=== PATIENT | female | born 1950 | race Caucasian/White ===

== ENCOUNTER 2017-07-23 10:54 | Emergency (ER) | payer MEDICARE, MEDICAID ==
[~2017-07-23] VITALS: Ht 154.9 cm; Wt 46.8 kg
[~2017-07-23 10:54] MED LIST: ALBU8.5H2 IH; ALBU8.5H2 INHALATION; BECL8.7A6 IH; CLON0.5T PO; CYCL5TAB PO; DULO30CA PO; ERGO500050 PO; FLUT9.9S NS; HYDR-4003 PO; IBUP800T28 PO; LAMO200T2 PO; LEVO75TA4 PO; MULT-896 PO; OLAN5TAB PO; OMPR20CCR PO; POLY17PO2 PO; POTA10CA42 PO; RIZA10TA28 PO; TOPI200T7 PO; TRAZ-118 PO
[2017-07-23 11:00] VITALS: BP 128/73; PULSE 90; RESP 18; O2SAT 99
--- NOTE | 2017-07-23 11:34 | DRSVH ---
PROCEDURE: CT BRAIN WITHOUT CONTRAST ([id number]) INDICATIONS: altered mental status, confused TECHNIQUE: Noncontrast 4.5 mm thick angled axial sections acquired from the foramen magnum to the vertex, with c oronal reformats. COMPARISON: [facility], CT, BRAIN W/O CONTRAST, 10/31/2012, 16:06. FINDINGS: Image quality: Excellent. CSF spaces: Basal cisterns are patent. No extra-axial fluid collections. The ventricles are symmet linda in size and shape. Brain: No intracranial bleeds or masses. There is cerebral volume loss for age, with resultant vent ricular and sulcal prominence. There are periventricular and deep white matter chronic small vessel ischemic changes. There is intracranial internal carotid artery atherosclerosis. Skull and face: Calvarium and visualized facial bones appear intact, without suspicious lesions. Sinuses: Visualized sinuses and mastoids are clear. IMPRESSION: No acute intracranial abnormality Dictated by: Christoph Mitchell M.D. on 07/23/2017 at 11:30 Approved by: Christoph Mitchell M.D. on 07/23/2017 at 11:32
[2017-07-23 11:43] LABS: BASOPHILS % (AUTO) 0.1 % (0-3); EOSINOPHILS % (AUTO) 0.8 % (0-5); MONOCYTES % (AUTO) 8.3 % (4-12); Mean Corpuscular Hemoglobin 31.6 pg (27.0-35.0); Mean Corpuscular Volume 97.8 fL (81-100); NEUTROPHILS % (AUTO) 71.5 % (40-74); Platelet Count 320 bil/L (150-400)
--- NOTE | 2017-07-23 11:45 | ED.REPORT ---
HPI-General Illness Date of Service Jul 23, 2017 ED Provider: Michael Lilly MD This is a 66-year-old female with history of schizophrenia, dementia, COPD, hypertension who presents to the emergency department from [facility] for confusion. It is reported that she has been acting more unusual and is not at baseline for her dementia and schizophrenia. The patient states she is having a headache pointing to both temporals and is also feeling lightheaded. She has had these headaches in the past and these are not new. She states this started a couple days ago. She mentions of having a dry cough which she relates to her smoking. She denies any nausea, vomiting, chest pain, shortness of breath, abdominal pain, diarrhea, dysuria. She does note she has been very thirsty and drinking a lot of water and states she is having urinary frequency. After speaking with her primary caregiver at [facility], she mentions the patient has been more forgetful today. She noticed that she was weak and having difficulty walking. She does note that on Friday night she went out with her friends and stayed at their place and that when she returned on Friday (4 days ago) she was agitated and forgetful. It was mentioned that her counselor had also noticed this on 2 days prior which is a change from her baseline, though it's difficult to tell. Nursing Notes Stated Complaint: CONFUSED Chief Complaint: General Complaint Nursing Notes Reviewed: Yes Allergies: Coded Allergies: codeine (Verified Allergy, Severe, 09/12/15) quetiapine (Verified Allergy, Unknown, FEELS LIKE CRAWLING OUT OT SKIN, ) Scheduled Aspirin (Aspirin) 81 Mg Tablet 81 MG PO DAILY Beclomethasone Dipropionate (Qvar) 8.7 Gm Aer.w.adap 2 PUFFS IH BID Buspirone (Buspirone) 15 Mg Tablet 30 MG PO BID 8AM, 4PM Cholecalciferol (Vitamin D3) (Vitamin D3) 1,000 Unit Tab.chew 2,000 UNIT PO DAILY Clonazepam (Klonopin) 0.5 Mg Tablet 0.5 MG PO HS Clonazepam (Clonazepam) 0.5 Mg Tablet 0.25 MG PO BID 8AM, 3PM Duloxetine (Duloxetine) 60 Mg Capsule.dr 120 MG PO QAM Fluticasone Propionate (Flonase Allergy Relief) 50 Mcg/Actuation [place] Pos.susp 2 SPRAYS NS DAILY Hydrocodone-Acetaminophen 5-325 mg (Hydrocodone-Acetaminophen 5-325 mg) 1 Each Tablet 1 EACH PO TID 8am, 2pm, 8pm Ibuprofen (Ibuprofen) 800 Mg Tablet 800 MG PO TIDWM Lamotrigine (Lamotrigine) 150 Mg Tablet 450 MG PO HS Levothyroxine (Levothyroxine) 75 Mcg Tablet 75 MCG PO DAILY Multivitamin W-Minerals/Lutein (Centrum Silver Ultra Men's Tab) 1 Each Tablet 1 EACH PO DAILY Olanzapine (Olanzapine) 5 Mg Tablet 20 MG PO HS Omeprazole (Omeprazole) 20 Mg Capsule.dr 20 MG PO DAILY Potassium Chloride (Potassium Chloride) 10 Meq Capsule.er 20 MEQ PO DAILY TAKE WITH FOOD Ranitidine (Ranitidine) 150 Mg Capsule 150 MG PO BID Risedronate Sodium (Risedronate Sodium) 35 Mg Tablet 35 MG PO WEEKLY Topiramate (Topiramate) 200 Mg Tablet 200 MG PO BID Trazodone (Trazodone) 100 Mg Tablet 200 MG PO HS Ziprasidone (Ziprasidone) 60 Mg Capsule 180 MG PO DAILYWD diphenhydrAMINE HCl (Benadryl) 25 Mg Capsule 25 MG PO BID 8AM, 3PM diphenhydrAMINE HCl (Benadryl) 25 Mg Capsule 50 MG PO HS Scheduled PRN Albuterol HFA (Proair HFA) 8.5 Gm Hfa.aer.ad 2 PUFFS IH Q4-6H PRN PRN For Shortness of Breath Albuterol Neb Soln (Albuterol Neb Soln) 0.63 Mg/3 Ml Vial.neb 0.63 MG INHALATION Q4H PRN PRN For Shortness of Breath Calcium Carbonate/Mag Hydrox (Antacid Extra Strngth Tab Chew) 1 Each Tab.chew 1- 2 EACH PO QID PRN PRN For Indigestion Guaifenesin/Dextromethorphan (Robitussin Cough-Chest Dm Liq) 100 Mg-5 Mg/5 Ml Liquid 10-20 ML PO Q4H PRN PRN For Cough Ondansetron ODT (Ondansetron ODT) 4 Mg Tab.rapdis 4 MG PO QID PRN PRN For Nausea Polyethylene Glycol 3350 (Polyethylene Glycol 3350) 17 Gm Powd.pack 17 GM PO DAILY PRN PRN For Constipation General Time Seen by MD: 10:59 Chief Complaint Altered mental status Past Medical History This is a 66-year-old female with history of schizophrenia, dementia, COPD, hypertension who [facility]. It is reported that she has been acting more unusual and is not at baseline for her dementia and schizophrenia. The patient states she is having a headache pointing to both temporals and is also feeling lightheaded. She states this started a couple days ago. She mentions of having a dry cough which she relates to her smoking. She denies any nausea, vomiting, chest pain, shortness of breath, abdominal pain, diarrhea, dysuria. She does note she has been very thirsty and drinking a lot of water and states she is having urinary frequency. The patient herself is aware that she is in the emergency room at [facility] in [place]. After asking her the year, She originally said 1917 and after having her try again, she was able to reproduce 2016. She currently believes "Renny" is the president. I am unaware of what her baseline is. Past Medical History Chronic interstitial pulmonary fibrosis, stable with stable oxygenation. Hypothyroidism Chronic pain with narcotic dependence. Chronic anemia. Multiple psychiatric disorders Part dyskinesia Reports: COPD, GERD, Hypertension, Mental illness Past Surgical History Reports: Hysterectomy, Tonsillectomy Reports: Hip replacement Smoking History Former Smoker Social History Adult family home Alcohol Use: Denies alcohol use Drug Use: Denies drug use Ambulatory Status Independent Review of Systems Full Review of Systems Constitutional: Denies: Chills, Fever Ears / Nose / Throat: Denies: Sinus problem, Sore throat Respiratory: Reports: Non-productive cough, Denies: Shortness of breath Cardiovascular: Denies: Chest pain GI: Denies: Diarrhea Female: Reports: Urinary frequency, Denies: Dysuria, Incontinence Musculoskeletal: Denies: Back pain Skin: Denies Rash Neurologic: Reports: Headache (chronic), Lightheaded, Denies: Slurred speech Psychiatric: Reports: Change mental status Complete sys rev & neg: except as marked. Physical Exam Vital Signs Vital Signs Date Time Temp Pulse Resp B/P Pulse Ox O2 Delivery O2 Flow Rate FiO2 07/23/17 15:22 36.8 87 15 122/73 99 Room Air 07/23/17 12:51 87 15 122/73 99 Room Air 07/23/17 11:00 36.2 90 18 128/73 99 Room Air Initial VS: Reviewed General/Constitutional: Awake, Alert, No acute distress, Cooperative Head / Eyes: Atraumatic, Normocephalic, PERRL, EOMI, No nystagmus, No scleral icterus, Conjunctiva NL Respiratory / Chest: Breath sounds = bilat, No respiratory distress, No rhonchi , No wheezing Rales / Rhonchi: Positive: Rales bilateral bases Cardiovascular: Heart rate NL, Regular rhythm Heart Sounds / Murmur: Positive: Murmur location... (2nd R intercostal and apex ), Murmur present... (V/) Abdomen: Atraumatic, Soft, No guarding, No rebound, BS normoactive, No distention Back: No CVA tenderness Neurologic: Oriented X3, Speech NL, No motor deficits, No sensory deficits, CN II - XII intact, Cerebellar NL Patient is able to walk with cane without any difficulty. Finger to nose testing is normal. Psychiatric: Affect NL, Mood NL Patient is oriented to person place and time. She is aware of being in [facility] in [place]. Interpretation & Diagnostics Lab Results Interpretation Result Diagram: 07/23/17 1130 07/23/17 1130 Test 07/23/17 11:30 07/23/17 13:11 White Blood Count 7.8th/mm3 (3.8-10.1) Red Blood Count 3.61mil/mm3 (3.90-5.20) Hemoglobin 11.4g/dL (12.0-15.6) Hematocrit 35.3% (35.0-46.0) Mean Corpuscular Volume 97.8fL (81-100) Mean Corpuscular Hemoglobin 31.6pg (27.0-35.0) Mean Corpuscular Hemoglobin Concent 32.3% (32.0-37.0) Red Cell Distribution Width 13.7% (12.3-15.4) Platelet Count 320bil/L (150-400) Neutrophils (%) (Auto) 71.5% (40-74) Lymphocytes (%) (Auto) 19.0% (14-46) Monocytes (%) (Auto) 8.3% (4-12) Eosinophils (%) (Auto) 0.8% (0-5) Basophils (%) (Auto) 0.1% (0-3) Sodium Level 138mEq/L (134-144) Potassium Level 3.7mEq/L (3.5-5.2) Chloride Level 103mEq/L (97-108) Carbon Dioxide Level 21mmol/L (18-29) Blood Urea Nitrogen 14mg/dL (8-27) Creatinine 0.36mg/dL (0.57-1.00) Estimat Glomerular Filtration Rate 260mL/min (>59) Glucose Level 63mg/dL (60-99) Lactic Acid Level 0.8mmol/L (0.4-2.0) Calcium Level 9.2mg/dL (8.5-10.1) Magnesium Level 2.3mg/dL (1.6-2.6) Total Bilirubin 0.3mg/dL (0.0-1.2) Aspartate Amino Transf (AST/SGOT) 31U/L (0-50) Alanine Aminotransferase (ALT/SGPT) 14U/L (0-32) Alkaline Phosphatase 96U/L (25-165) Total Protein 6.6g/dL (6.4-8.4) Albumin 3.8g/dL (3.4-5.0) Salicylates Level < 3.0ug/mL (30-250) Acetaminophen Level < 15.0ug/mL Rx (10-25) Alcohols < 10mg/dL (0-10) Urine Color Yellow (YELLOW) Urine Appearance Hazy (CLEAR,HAZY) Urine pH 7.0 (5.0-8.0) Urine Specific [place] 1.015 (1.003-1.035) Urine Protein Tracemg/dL (NEG,TRACE) Urine Glucose (UA) Negativemg/dL (NEGATIVE) Urine Ketones Negativemg/dL (NEGATIVE) Urine Occult Blood Trace (NEGATIVE) Urine Nitrite Negative (NEGATIVE) Urine Bilirubin Negative (NEGATIVE) Urine Urobilinogen Normalmg/dL (NORMAL) Urine Leukocyte Esterase Negative (NEGATIVE) Urine RBC 3-10/hpf (0-2) Urine WBC 0-5/hpf (0-5) Urine Epithelial Cells Few/hpf (NONE-MOD) Urine Crystals Amorphous urates (NONE Urine Bacteria None/hpf (NONE-FEW) Urine Hyaline Casts None/lpf (NONE) Urine Granular Casts None seen (NONE SEEN) Urine Waxy Casts None seen (NONE SEEN) Urine Red Blood Cell Casts None seen (NONE SEEN) Urine White Blood Cell Casts None seen (NONE SEEN) Urine Mucus None seen (None Seen) Urine Trichomonas None seen (NONE SEEN) Urine Yeast None (NONE SEEN) Urinalysis Comment None Urine Culture Reflexed Not indicated Re-Eval/Medical Decision Med Decision/Clinical Course This is a 66-year-old male with history of dementia, schizophrenia, COPD, hypothyroidism who presents to the emergency department for altered mental status. Apparently patient has been more forgetful and had an episode of being weak, pale, and unable to walk. The patient herself notes a headache that has been present previously. Her physical exam findings are quite unremarkable. On neurologic exam, cranial nerves II-XII are intact with normal finger to nose testing. She has ambulated here and has been pleasant and conversant. Her chest x-ray does show some possible mild pulmonary edema, though she is not symptomatic from this. Her CT head showed no acute intracranial abnormalities. Urine tox screen is positive for methamphetamine, benzodiazepine, opiates, PCP. However, she is on a lot of psychiatric medications which could cause some false positives. There is no evidence of a urinary tract infection on the urinalysis. Her CBC and CMP are quite unremarkable except for a mild anemia which has been observed in the past and is stable. Had a discussion with [facility] facility who was comfortable with accepting the patient back given her reassuring workup thus far in the emergency department. She is seemingly at baseline at this time. The nursing facility did not feel it was necessary to admit the patient for her symptoms. Patient is also requesting to leave. There does not seem to be any acute process going on at this time and patient is stable to go home as the patient seems to be back at baseline. Plan to discharge with very careful return precautions, PCP follow-up in the next 1- 2 days. Patient agreeable to the plan as stated, no further questions. 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 There is no evidence of any acute intracranial process going on per head CT scan. There is no evidence of infection based off blood results and urinalysis. If you start to develop fevers, increased confusion, sudden onset weakness, return to the ED. Referrals: Ainsley Hinson MD (PCP) (Family) Attending Statement I saw and evaluated the patient in conjunction with the resident. I agree with the plan and findings as documented above. Michael Lilly MD Jul 23, 2017 11:45 Abdifatah Raza DO Jul 23, 2017 12:36
--- NOTE | 2017-07-23 11:56 | DRSVH ---
PROCEDURE: X-RAY CHEST ONE VIEW, PORTABLE ([id number]) INDICATIONS: confused TECHNIQUE: One view of the chest was acquired. COMPARISON: [facility], CR, XR CHEST 2VW, 11/20/2015, 9:15. [facility], CR , CHEST 2VW, 04/01/2015, 12:39. FINDINGS: Surgical changes and devices: None. Lungs and pleura: No pleural effusions or pneumothorax. Lungs are again seen to be fibrotic, most p rominent at the lung bases, and there is chronic elevation of the left hemidiaphragm. The overall elgin ng volumes are reduced bilaterally.. Mediastinum: Mediastinal contours appear normal. Heart size is normal. Bones and chest wall: No suspicious bony lesions. Overlying soft tissues appear unremarkable. IMPRESSION: Pulmonary fibrotic change, possible superimposed mild pulmonary edema. Chronic elevation of the left hemidiaphragm, and bilaterally the lung volumes are smaller than on the comparison studi es from 2014. This can indicate progression of restrictive lung disease. Dictated by: Henry Diaz M.D. on 07/23/2017 at 11:54 Approved by: Henry Diaz M.D. on 07/23/2017 at 11:55
[2017-07-23 12:14] LABS: Magnesium 2.3 mg/dL (1.6-2.6)
[2017-07-23 12:51] VITALS: BP 122/73; PULSE 87; RESP 15; O2SAT 99
[2017-07-23] MEDS ORDERED: ONDA4TAB12 PO (13:48)
[2017-07-23] MEDS ORDERED: ALBU0.63 INHALATION (13:48)
[2017-07-23] MEDS ORDERED: CALC-853 PO (13:48)
[2017-07-23] MEDS ORDERED: GUAI237L83 PO (13:51)
[2017-07-23] MEDS ORDERED: ASPI-973 PO (13:51)
[2017-07-23] MEDS ORDERED: BUSP15TA3 PO (13:58)
[2017-07-23] MEDS ORDERED: DULO60CA61 PO (13:58)
[2017-07-23] MEDS ORDERED: DIPH25CA6 PO ×2 (13:58)
[2017-07-23] MEDS ORDERED: LAMO150T2 PO (14:01)
[2017-07-23 14:04] LABS: APPEARANCE,URINE HAZY (CLEAR,HAZY); COLOR,URINE YELLOW (YELLOW); OCCULT BLOOD,URINE TRACE (NEGATIVE); UROBILINOGEN,URINE NORMAL (NORMAL)
[2017-07-23] MEDS ORDERED: RISE35TA13 PO (14:06)
[2017-07-23] MEDS ORDERED: CHOL10008 PO (14:06)
[2017-07-23] MEDS ORDERED: ZIPR60CA18 PO (14:06)
[2017-07-23] MEDS ORDERED: OMEP20CA11 PO (14:06)
[2017-07-23] MEDS ORDERED: RANI150C4 PO (14:06)
[2017-07-23] MEDS ORDERED: KLO5T PO (14:06)
[2017-07-23 15:22] VITALS: BP 122/73; PULSE 87; RESP 15; O2SAT 99
== END 2017-07-23 15:23 | disposition home or self-care (01) ==
LOC: SED 10:54 → EDBD 10:54 → EDUNIT# 10:54 → SED 15:23
DX: R41.82 Altered mental status, unspecified (principal); R51 Headache; R35.0 Frequency of micturition; E03.9 Hypothyroidism, unspecified; K21.9 Gastro-esophageal reflux disease without esophagitis; J44.9 Chronic obstructive pulmonary disease, unspecified; I10 Essential (primary) hypertension; Z87.891 Personal history of nicotine dependence; Z79.82 Long term (current) use of aspirin; Z79.51 Long term (current) use of inhaled steroids; Z88.5 Allergy status to narcotic agent
CPT/HCPCS: 36415; 70450; 71010; 80053; 81000; 82948; 83605; 83735; 85025; 93005; 99285; G0480

== ENCOUNTER 2017-08-05 18:17 | Inpatient (IN) | payer MEDICARE, MEDICAID ==
[~2017-08-05] VITALS: Ht 157.5 cm; Wt 36.2 kg
[~2017-08-05 18:17] MED LIST changes: +ALBU0.63 INHALATION; -ALBU8.5H2 INHALATION; +ASPI-973 PO; +BUSP15TA3 PO; +CALC-853 PO; +CHOL10008 PO; -CYCL5TAB PO; +DIPH25CA6 PO; -DULO30CA PO; +DULO60CA61 PO; -ERGO500050 PO; +GUAI237L83 PO; +KLO5T PO; +LAMO150T2 PO; -LAMO200T2 PO; +OMEP20CA11 PO; -OMPR20CCR PO; +ONDA4TAB12 PO; +RANI150C4 PO; +RISE35TA13 PO; -RIZA10TA28 PO; +ZIPR60CA18 PO
[2017-08-05 18:29] VITALS: BP 145/63; PULSE 97; RESP 24; O2SAT 72
--- NOTE | 2017-08-05 18:44 | ED.REPORT ---
HPI-Dyspnea / Wheezing Date of Service Aug 05, 2017 ED Provider: Salazar Chamberlain MD History of Present Illness: KATHLEEN Pt is a 67 year old female with a hx of multiple psychiatric disorders, COPD, GERD, HTN, pulmonary fibrosis, hypothyroid, presenting to the ED via EMS complaining of SOB and a non-productive cough onset about 5-6 days ago. She also reports chest pain for the past week as well as speech changes, but is unable to state when this began or what her baseline is. Denies fever, chills, diaphoresis, nausea, or vomiting. She denies using a home nebulizer today, and is on chronic O2 at home. HPI limited due to patient condition. Nursing Notes Stated Complaint: SHORTNESS OF BREATH Chief Complaint: Respiratory Complaints Nursing Notes Reviewed: Yes (P2P-Next not reconciled) Allergies: Coded Allergies: codeine (Verified Allergy, Severe, 08/05/17) quetiapine (Verified Allergy, Unknown, FEELS LIKE CRAWLING OUT OT SKIN, 11/09) Scheduled Aspirin (Aspirin) 81 Mg Tablet 81 MG PO DAILY Beclomethasone Dipropionate (Qvar) 8.7 Gm Aer.w.adap 2 PUFFS IH BID Buspirone (Buspirone) 15 Mg Tablet 30 MG PO BID at 0800 and 1600 Cholecalciferol (Vitamin D3) (Vitamin D3) 1,000 Unit Tab.chew 2,000 UNIT PO DAILY Clonazepam (Klonopin) 0.5 Mg Tablet 0.5 MG PO HS Clonazepam (Clonazepam) 0.5 Mg Tablet 0.25 MG PO BID 8AM, 3PM Duloxetine (Duloxetine) 60 Mg Capsule.dr 120 MG PO QAM Fluticasone Propionate (Flonase Allergy Relief) 50 Mcg/Actuation [place].susp 2 SPRAYS NS DAILY Hydrocodone-Acetaminophen 5-325 mg (Hydrocodone-Acetaminophen 5-325 mg) 1 Each Tablet 1 EACH PO TID 8am, 2pm, 8pm Ibuprofen (Ibuprofen) 800 Mg Tablet 800 MG PO TIDWM Lamotrigine (Lamotrigine) 150 Mg Tablet 450 MG PO HS Levothyroxine (Levothyroxine) 75 Mcg Tablet 75 MCG PO DAILY Multivitamin W-Minerals/Lutein (Centrum Silver Ultra Men's Tab) 1 Each Tablet 1 EACH PO DAILY Olanzapine (Olanzapine) 5 Mg Tablet 20 MG PO HS Omeprazole (Omeprazole) 20 Mg Capsule.dr 20 MG PO DAILY Potassium Chloride (Potassium Chloride) 10 Meq Capsule.er 20 MEQ PO DAILY TAKE WITH FOOD Ranitidine (Ranitidine) 150 Mg Capsule 150 MG PO BID Risedronate Sodium (Risedronate Sodium) 35 Mg Tablet 35 MG PO WEEKLY Topiramate (Topiramate) 200 Mg Tablet 200 MG PO BID Trazodone (Trazodone) 100 Mg Tablet 200 MG PO HS Ziprasidone (Ziprasidone) 60 Mg Capsule 180 MG PO DAILYWD diphenhydrAMINE HCl (Benadryl) 25 Mg Capsule 25 MG PO QAM diphenhydrAMINE HCl (Benadryl) 25 Mg Capsule 50 MG PO BID at 1500 and 2100 Scheduled PRN Albuterol HFA (Proair HFA) 8.5 Gm Hfa.aer.ad 2 PUFFS IH Q4-6H PRN PRN For Shortness of Breath Albuterol Neb Soln (Albuterol Neb Soln) 0.63 Mg/3 Ml Vial.neb 0.63 MG INHALATION QID PRN PRN For Shortness of Breath Calcium Carbonate/Mag Hydrox (Antacid Chewable Tablet) 1 Each Tab.chew 1-2 EACH PO q6 hours PRN PRN For Dyspepsia or Heartburn Guaifenesin/Dextromethorphan (Robitussin Cough-Chest Dm Liq) 100 Mg-5 Mg/5 Ml Liquid 10-20 ML PO Q4H PRN PRN For Cough Ondansetron ODT (Ondansetron ODT) 4 Mg Tab.rapdis 4 MG PO QID PRN PRN For Nausea Polyethylene Glycol 3350 (Polyethylene Glycol 3350) 17 Gm Powd.pack 17 GM PO DAILY PRN PRN For Constipation General Time Seen by MD: 18:40 Chief Complaint Shortness of breath Hx Obtained From: Patient Arrived By: Ambulance Sudden in Onset?: No Onset Occurred: 6 days ago Symptom Duration: Since onset Location: : Chest left: Chest right Quality: Painful Severity: Current: Mild Severity: Maximum: Moderate Recent Healthcare: No recent doctor visit, No recent hospitalization Similar Sx Previous: No Past Medical History Past Medical History Chronic interstitial pulmonary fibrosis, stable with stable oxygenation. Hypothyroidism Chronic pain with narcotic dependence. Chronic anemia. Multiple psychiatric disorders Part dyskinesia Reports: COPD, GERD, Hypertension, Mental illness Past Surgical History Reports: Hysterectomy, Tonsillectomy Reports: Hip replacement Smoking History Former Smoker Social History Adult family home Alcohol Use: Denies alcohol use Drug Use: Denies drug use Ambulatory Status Independent Review of Systems Unable to Obtain ROS Patient condition Physical Exam Initial Vital Signs Vital Signs (First) Date Time Temp Pulse Resp B/P Pulse Ox O2 Delivery O2 Flow Rate FiO2 08/05/17 18:29 36.6 97 24 145/63 72 Room Air 08/05/17 19:04 4 Initial VS: Reviewed, Vital signs abnormal Head / Eyes: Atraumatic, Normocephalic, PERRL ENT: Mucous membranes moist, Conjunctiva normal, No scleral icterus Abdomen / GI: Soft, Non-tender, No guarding, No rebound, No distention Extremities: Vascular intact, Neuro intact, No swelling, No tenderness Skin: Warm, Dry, No cyanosis General/Constitutional: Awake, Alert Thin, cachectic. Poor historian. Respiratory / Chest: Atraumatic Resp Distress / Stridor: Positive: Resp distress moderate Scattered wheezes. Hacking, uncomfortable appearing cough. Cardiovascular: Heart rate NL, Regular rhythm, Heart sounds NL Neurologic: Oriented X3 Moving all 4 extremities. Pt is very focused and gives same answer to several different questions. Speech thick and difficult to understand, and cannot get straight answer if this is her baseline. Psychiatric: Affect NL Limited insight. Mild confusion but unclear what baseline is. Interpretation & Diagnostics CT HEAD: IMPRESSION: 1. No acute intracranial findings. 2. Findings likely associated with chronic microvascular ischemia. Dictated by: Sherry Pena M.D. on 08/05/2017 at 20:07 Lab Results Interpretation Result Diagram: 08/05/17 1850 08/05/17 185 Test 08/05/17 18:50 08/05/17 19:23 White Blood Count 10.3th/mm3 (3.8-10.1) Red Blood Count 3.62mil/mm3 (3.90-5.20) Hemoglobin 11.2g/dL (12.0-15.6) Hematocrit 34.4% (35.0-46.0) Mean Corpuscular Volume 95.0fL (81-100) Mean Corpuscular Hemoglobin 30.9pg (27.0-35.0) Mean Corpuscular Hemoglobin Concent 32.6% (32.0-37.0) Red Cell Distribution Width 13.3% (12.3-15.4) Platelet Count 554bil/L (150-400) Neutrophils (%) (Auto) 83.2% (40-74) Lymphocytes (%) (Auto) 9.1% (14-46) Monocytes (%) (Auto) 6.8% (4-12) Eosinophils (%) (Auto) 0.5% (0-5) Basophils (%) (Auto) 0.2% (0-3) Sodium Level 135mEq/L (134-144) Potassium Level 3.3mEq/L (3.5-5.2) Chloride Level 98mEq/L (97-108) Carbon Dioxide Level 18mmol/L (18-29) Blood Urea Nitrogen 15mg/dL (8-27) Creatinine 0.35mg/dL (0.57-1.00) Estimat Glomerular Filtration Rate 268mL/min (>59) Glucose Level 189mg/dL (60-99) Calcium Level 8.6mg/dL (8.5-10.1) Total Bilirubin 0.3mg/dL (0.0-1.2) Aspartate Amino Transf (AST/SGOT) 40U/L (0-50) Alanine Aminotransferase (ALT/SGPT) 17U/L (0-32) Alkaline Phosphatase 124U/L (25-165) Troponin T < 0.010ug/L (0.0-0.011) Pro-B-Type Natriuretic Peptide 322.0pg/mL (0-301) Total Protein 6.6g/dL (6.4-8.4) Albumin 3.4g/dL (3.4-5.0) Procalcitonin 0.08ng/mL (0.00-0.08) Lactic Acid Level 1.2mmol/L (0.4-2.0) Salicylates Level < 3.0ug/mL (30-250) Acetaminophen Level < 15.0ug/mL Rx (10-25) Alcohols < 10mg/dL (0-10) Lab Results Interpretation: CBC normal CMP trace hypokalemia, likely secondary to aggressive albuterol use Lactic acid normal Troponin negative ProBNP nonspecifically elevated Blood cultures pending ECG Interpretation ECG Interpretation: NSR @91, severe LVH w/progressive repol (ST depression) lateral leads compare w/previous - possibly due to progressive LVH/Cor pulmonale or patient's hypxoxia today Interpreted by: ED physician X-Ray Chest Interpretation Chest Xray Interpretation: IMPRESSION: 1. Diffuse right pulmonary opacities and left basilar radiopacity suspicious for aspiration/infection. These findings have increased in extent when compared with the prior study dated 07/23/17. 2. Marked gaseous distention of the bowel suspicious for distal obstruction or ileus. Dictated by: Sherry Pena M.D. on 08/05/2017 at 19:06 View: Portable, 1 view Interpretation / Wet Read by: Interpret - Radiologist Re-Eval/Medical Decision Med Decision/Clinical Course This is a 67-year-old female 1 stating COPD pulmonary fibrosis presents with slowly worsening shortness breath and increasing cough. The poor historian, and her speech is abnormal-and initially had difficulty starting out this is an acute speech change or not. Additionally the patient is a terrible historian, and it is difficult to understand her baseline mental status-records clearly do indicate some mental health history and cognitive challenges. A friend came by , and says that speech turned out to be not an acute change, although distant slowly worsening over recent months, and her mental status be at her baseline. Records suggest the patient's on O2 chronically, but she lives in adult family home and it turns out she is not normally on O2-she has significant hypoxia today requiring supplemental O2. She has significant bronchospasm, no marked cough, but is not febrile. Chest x-ray reveals progressive pulmonary fibrosis, suspicious for developing pneumonia. Clinically this also fits. Patient also has chronic left hemidiaphragm elevation and gastric hernia evident on chest film. However this does not appear appreciably changed. There is a moderate amount of gas, the patient's had no vomiting, normal stool output, no signs of deeapk obstruction. The friend does state his been decreased appetite some anorexia and recent weeks however. Patient received multiple nebulizers of albuterol, Atrovent, Solu-Medrol, magnesium and is started on ceftriaxone and azithromycin for pneumonia. Given initially it was difficult to determine what her baseline mental status and her try to sort out she was altered from hypercapnia blood gas was obtained , but did not reveal signs of CO2 retention or respiratory failure. The patient remains significantly hypoxic, bronchospastic, does require admission for continued management. The case discussed the hospitalist Source of Hx: Old records Re-Evaluation/Progress : Time of Eval: 20:00 Patient Status: Condition improved Re-Evaluation/Progress Note: Informed pt of radiolgy and lab results and plan for admission. Pt understands and agrees. Consultation : Referral / Consult Name: Abdifatah Edmondson MD Consulted With: Hospitalist Call Returned at: 20:09 Major General: Will see patient, Agrees with plan, Accepts admit Counseled Regarding: Diagnosis, Lab results, Need for admission Discharge & Departure Impression: Primary Impression: COPD exacerbation Additional Impressions: Pneumonia Pneumonia type: due to unspecified organism Laterality: unspecified laterality Lung location: unspecified part of lung Qualified Code: J18.9 - Pneumonia, unspecified organism Hypoxia Disposition: ADMITTED TO HOSPITAL Discharge Condition All VS Reviewed: Yes Condition: Improved Referrals: Ainsley Hinson MD (PCP) [place] Attestation Portions of this note were transcribed by Regine Zuniga. I, Dr. Chamberlain personally performed the history, physical exam and medical decision-making; I reviewed and confirmed the accuracy of the information in the transcribed note. Signed by: Darius Lewis, 08/05/2017. copies to: Ainsley Hinson MD, Matthew F MD Aug 05, 2017 18:44 REGINE ZUNIGA Aug 05, 2017 19:04
[2017-08-05] MEDS ORDERED: Albuterol 2.5 mg/3 mL Inhalation Solution NEB ONE ×3 (18:45→20:15)
[2017-08-05] MEDS ORDERED: Ipratropium 0.02% 0.5 mg/2.5 mL Inhalation Solution NEB ONE ×2 (18:45→18:50)
[2017-08-05] MEDS ORDERED: MethylprednisoLONE Sodium Succinate 62.5 mg/mL 2 mL Inj IVPUSH ONE (18:50)
[2017-08-05] MEDS ORDERED: Magnesium Sulf 2 Gm/50mL Water 2 GM in IV Premix 1 EACH IV ONE (18:50)
[2017-08-05 19:04] VITALS: PULSE 94; RESP 23; O2SAT 94
[2017-08-05 19:04] LABS: BASOPHILS % (AUTO) 0.2 % (0-3); EOSINOPHILS % (AUTO) 0.5 % (0-5); MONOCYTES % (AUTO) 6.8 % (4-12); Mean Corpuscular Hemoglobin 30.9 pg (27.0-35.0); NEUTROPHILS % (AUTO) 83.2 % (40-74); Platelet Count 554 bil/L (150-400)
--- NOTE | 2017-08-05 19:14 | DRSVH ---
PROCEDURE: X-RAY CHEST ONE VIEW, PORTABLE ([id number]) INDICATIONS: shortness of breath TECHNIQUE: One view of the chest was acquired. COMPARISON: [facility], CR, XR CHEST 1VW (PORTABLE), 07/23/2017, 11:33. FINDINGS: Surgical changes and devices: None. Lungs and pleura: Diffuse pulmonary opacities are present throughout the right lung and the left lung base. The extent of infiltration is increased when compared with the prior study dated 07/23/17. No p neumothorax. Mediastinum: Mediastinum is poorly characterized given the extent of pulmonary disease. There is ezequiel ed gaseous distention of the bowel with elevation of the left hemidiaphragm. Bones and chest wall: No suspicious bony lesions. Overlying soft tissues appear unremarkable. IMPRESSION: 1. Diffuse right pulmonary opacities and left basilar radiopacity suspicious for aspiration/infection . These findings have increased in extent when compared with the prior study dated 07/23/17. 2. Marked gaseous distention of the bowel suspicious for distal obstruction or ileus. Dictated by: Sherry Pena M.D. on 08/05/2017 at 19:06 Approved by: Sherry Pena M.D. on 08/05/2017 at 19:13
[2017-08-05 19:26] LABS: TROPONIN T < 0.010 ug/L (0.0-0.011)
--- NOTE | 2017-08-05 19:26 | ABG ---
DateTimeAnalyzed 19:18:00 -_ pH ____7.351 - 7.350 7.450 pCO2 ___41.1__ -mmHg 35.0 45.0 pO2 ___56.4__ -mmHg 69.0 116 HCO3- ___22.2__ -mmol/L 22.0 26.0 ABE ___-2.7__ -mmol/L -2.0 2.0 tHb ___10.7__ -g/dL 12.0 18.0 O2Hb ___85.9__ -% COHb ____1.1__ -% 0.0 1.5 MetHb ____1.0__ -% 0.4 1.5 sO2 ___87.7__ -% FIO2 ___28.0__ -% Drawn By MM - Date/Time Notified____ 19:25:00 -_ Spontaneous_RR ___22.0__ -b/min Liter_Flow ____2.0__ -L/min Oxygen Device 1 __CANNULA - Notified Whom DR INO, THOMSON -_ B 756 -mmHg tO2 ___13.0__ -Vol% Josh test _Positive -
[2017-08-05] MEDS ORDERED: Azithromycin Inj 500 MG in Dextrose 5% w/Vial Mate 250 ML IV ONE (19:35)
[2017-08-05] MEDS ORDERED: cefTRIAXone Inj 2,000 MG in Dextrose 5% Minibag Plus 50 ML IV ONE (19:35)
--- NOTE | 2017-08-05 20:10 | DRSVH ---
PROCEDURE: CT BRAIN WITHOUT CONTRAST ([id number]) INDICATIONS: Altered speech TECHNIQUE: Noncontrast 4.5 mm thick angled axial sections acquired from the foramen magnum to the vertex, with c oronal reformats. COMPARISON: [facility], CT, CT BRAIN WO CON, 07/23/2017, 11:15. FINDINGS: Image quality: Excellent. CSF spaces: Basal cisterns are patent. No extra-axial fluid collections. The ventricles are symmet linda in size and shape. Brain: No intracranial bleeds or masses. There is cerebral volume loss for age, with resultant vent ricular and sulcal prominence. There are periventricular and deep white matter chronic small vessel ischemic changes. There is intracranial internal carotid artery atherosclerosis. Skull and face: Calvarium and visualized facial bones appear intact, without suspicious lesions. Sinuses: Visualized sinuses and mastoids are clear. IMPRESSION: 1. No acute intracranial findings. 2. Findings likely associated with chronic microvascular ischemia. Dictated by: Sherry Pena M.D. on 08/05/2017 at 20:07 Approved by: Sherry Pena M.D. on 08/05/2017 at 20:08
[2017-08-05] MEDS ORDERED: CALC-846 PO (20:32)
--- NOTE | 2017-08-05 20:42 | PCM.HPMED ---
Subjective Date of Service Aug 05, 2017 Primary Provider: Admitting Physician: Primary Care Physician: Ainsley Hinson MD Attending Physician: Chief Complaint: Shortness of breath History of Present Illness: 67-year-old female with a history of multiple psychiatric disorders, hypertension, hypothyroidism, pulmonary fibrosis secondary to aspiration during suicide attempt 11 years ago, and COPD who [facility] complaining of progressive shortness of breath over the last 7-10 days with intermittently productive cough. Patient states that 10 days ago she quit cigarettes in a few days afterwards she developed more marketed shortness of breath, chest pressure with reported radiation to the neck, and decreased exercise tolerance. She denies chest pain, fever, chills, nausea, vomiting, change in bowel or bladder habits. She is not on oxygen at the prison. Her friend is with her and reports that the patient has had a steady decline in mentation over the last few months. She is receiving care through [facility] and her friend states that there is a post needs a psychiatrist to review her medications to see if this is causing her decrease mental status. Last time patient was seen by pulmonology was in 2011, and there are no PFTs found in [facility]. In the Emergency department the patient was found to be severely hypoxic with sats in the 70s. Chest x-ray showed consolidations in the right lobe along with what appears to be large amounts of interstitial disease. Patient also had dilated loops of bowel and stomach which were increased from her last x- ray. She was given 125 mg of Solu-Medrol, started on ceftriaxone and azithromycin, and given magnesium, albuterol and ipratropium. Review of Systems: Complete review of systems performed; pertinent positives and negatives per history of present illness, all other systems reviewed and are negative Allergies Coded Allergies: codeine (Verified Allergy, Severe, 08/05/17) quetiapine (Verified Allergy, Unknown, FEELS LIKE CRAWLING OUT OT SKIN, 11/09) Home Medications Aspirin (Aspirin) 81 Mg Tablet 81 MG PO DAILY Beclomethasone Dipropionate (Qvar) 8.7 Gm Aer.w.adap 2 PUFFS IH BID Buspirone (Buspirone) 15 Mg Tablet 30 MG PO BID 8AM, 4PM Cholecalciferol (Vitamin D3) (Vitamin D3) 1,000 Unit Tab.chew 2,000 UNIT PO DAILY Clonazepam (Klonopin) 0.5 Mg Tablet 0.5 MG PO HS Clonazepam (Clonazepam) 0.5 Mg Tablet 0.25 MG PO BID 8AM, 3PM Duloxetine (Duloxetine) 60 Mg Capsule.dr 120 MG PO QAM Fluticasone Propionate (Flonase Allergy Relief) 50 Mcg/Actuation [place].susp 2 SPRAYS NS DAILY Hydrocodone-Acetaminophen 5-325 mg (Hydrocodone-Acetaminophen 5-325 mg) 1 Each Tablet 1 EACH PO TID 8am, 2pm, 8pm Ibuprofen (Ibuprofen) 800 Mg Tablet 800 MG PO TIDWM Lamotrigine (Lamotrigine) 150 Mg Tablet 450 MG PO HS Levothyroxine (Levothyroxine) 75 Mcg Tablet 75 MCG PO DAILY Multivitamin W-Minerals/Lutein (Centrum Silver Ultra Men's Tab) 1 Each Tablet 1 EACH PO DAILY Olanzapine (Olanzapine) 5 Mg Tablet 20 MG PO HS Omeprazole (Omeprazole) 20 Mg Capsule.dr 20 MG PO DAILY Potassium Chloride (Potassium Chloride) 10 Meq Capsule.er 20 MEQ PO DAILY TAKE WITH FOOD Ranitidine (Ranitidine) 150 Mg Capsule 150 MG PO BID Risedronate Sodium (Risedronate Sodium) 35 Mg Tablet 35 MG PO WEEKLY Topiramate (Topiramate) 200 Mg Tablet 200 MG PO BID Trazodone (Trazodone) 100 Mg Tablet 200 MG PO HS Ziprasidone (Ziprasidone) 60 Mg Capsule 180 MG PO DAILYWD diphenhydrAMINE HCl (Benadryl) 25 Mg Capsule 25 MG PO BID 8AM, 3PM diphenhydrAMINE HCl (Benadryl) 25 Mg Capsule 50 MG PO HS Albuterol HFA (Proair HFA) 8.5 Gm Hfa.aer.ad 2 PUFFS IH Q4-6H PRN PRN For Shortness of Breath Albuterol Neb Soln (Albuterol Neb Soln) 0.63 Mg/3 Ml Vial.neb 0.63 MG INHALATION Q4H PRN PRN For Shortness of Breath Calcium Carbonate/Mag Hydrox (Antacid Extra Strngth Tab Chew) 1 Each Tab.chew 1- 2 EACH PO QID PRN PRN For Indigestion Guaifenesin/Dextromethorphan (Robitussin Cough-Chest Dm Liq) 100 Mg-5 Mg/5 Ml Liquid 10-20 ML PO Q4H PRN PRN For Cough Ondansetron ODT (Ondansetron ODT) 4 Mg Tab.rapdis 4 MG PO QID PRN PRN For Nausea Polyethylene Glycol 3350 (Polyethylene Glycol 3350) 17 Gm Powd.pack 17 GM PO DAILY PRN PRN For Constipation PMH Chronic interstitial pulmonary fibrosis, stable with stable oxygenation. Hypothyroidism Chronic pain with narcotic dependence. Chronic anemia. Multiple psychiatric disorders Part dyskinesia COPD GERD Hypertension Previous suicide attempt 11 years ago Surgical History Reports: Hysterectomy, Tonsillectomy Reports: Hip replacement Family History Father of heart disease Social History Hx Alcohol Use: No Hx Substance Use: No Hx Tobacco Use: Yes (27 yrs) Smoking Status: Current Every Day Smoker Exam Vital Signs Vital Sign - Last Date Time Temp Pulse Resp B/P Pulse Ox O2 Delivery O2 Flow Rate FiO2 08/05/17 19:04 94 23 94 Nasal Cannula 4 08/05/17 18:29 36.6 145/63 Exam General: Anxious female although than stated age HEENT: PERRLA, EOMI, nonicteric, membranes moist Lymph: No lymphadenopathy Cardio: Regular rate and rhythm 3-4/6 murmur heard best at left lower sternal border Respiratory: Bronchitis, coarse breath sounds, no wheezes Abdomen: Soft, positive bowel sounds, nontender, nondistended Extremities: No edema, sensation intact Psych: Anxious and somewhat aloof Neuro: CN II through XII grossly intact, sensation intact throughout Skin: No rash Lab and Diagnostics Result Diagram: 08/05/17184908/05/171849 X-Rays, CTs and MRIs Chest x-ray 1. Diffuse right pulmonary opacities and left basilar radiopacity suspicious for aspiration/infection. These findings have increased in extent when compared with the prior study dated 07/23/17 2. Marked gaseous distention of the bowel suspicious for distal obstruction or ileus. Dictated by: Sherry Pena M.D. on 08/05/2017 at 19:06 Assessment & Plan 67-year-old female with a past psychiatric history and mental decline, hypertension, pulmonary fibrosis, and COPD who presented to the emergency department due to 7-10 days of increased shortness of breath and chest pressure. Acute Hypoxia respiratory failure; present on admission; ongoing -Patient found to be severely hypoxic with sats in the 70s -Placed on oxygen -ABG shows normal pH with hypoxia with PO2 of 56.4 and normal PCO2 and bicarbonate. Acute COPD exacerbation with possible pneumonia; present on admission; ongoing -Patient not on home oxygen and presents with a saturation of the 70s -Chest x-ray shows diffuse fibrosis as well as possible consolidation in the right lower lobe -DuoNeb every 4 while awake -Methylprednisolone 40 mg IV daily; received 25 mg needed -Azithromycin (5day course) and continue ceftriaxone; her daughter home has 4 tenets and no nursing so will not cover for age -procalcitonin normal; repeat in am -Sputum culture -Respiratory PCR -Home medications include pro-air, nebulized albuterol, Qvar -Continue flonase Subacute and progressive encephalopathy in a setting of psychiatric disorder; present on admission; ongoing -Reported mental decline over the last 3 months; following with [facility] -Friend is concerned she is to many psychiatric medications -CT of the head was normal -Order TSH -Continue home medications for now -Lamotrigine, olanzapine, duloxetine, clonazepam, ziprasidone -Consider psychiatry consult for recommendations on medications Chronic pain with narcotic dependence; stable -Continue home hydrocodone Hypothyroidism-continue home levothyroxine 75 g. Check TSH Hypertension-no home meds listed in currently normotensive Insomnia-uses clonazepam at home; will treat as needed/requested Headaches-continue home topiramate GERD-famotidine 20 mg IV Osteoporosis-will not continue risedronate on admit; consider adding if extended LOS Disposition: Patient is being admitted to inpatient status with expected length of stay greater than two midnights due to to severity of presentation, duration of treatment, and risks of adverse events disposition Pain Evaluation: Adequate Pain Control GI Prophylaxis: H2 elsie VTE Prophylaxis: Sub-Q Heparin (Unfractionated) VTE Mechanical Devices: Intermittant Pneumatic CD Resuscitation Status: DNR/DNI:Do Not Resuscitate/Intubate Attending Statement The patient was seen and examined together with Dr. Traore on 08/05 and I agree with the history, exam and plan as outlined in the note above. Anant Traore DO Aug 05, 2017 20:42 Abdifatah Edmondson MD Aug 06, 2017 07:02
[2017-08-05] MEDS ORDERED: Polyethylene Glycol (PEG) 17 Gm Powder PO PRN (20:45)
[2017-08-05] MEDS ORDERED: Alum-Mag Hydrox-Simeth 30 mL Suspension PO PRN (20:45)
[2017-08-05] MEDS ORDERED: Ondansetron 2 mg/mL 2 mL Inj IVPUSH PRN (20:45)
[2017-08-05] MEDS ORDERED: guaiFENesin DM 200-20 mg/10 mL Syrup PO PRN (21:50)
[2017-08-05 22:04] VITALS: BP 152/62; PULSE 89; RESP 16; O2SAT 95
[2017-08-05 22:33] LABS: APPEARANCE,URINE CLEAR (CLEAR,HAZY); COLOR,URINE YELLOW (YELLOW); PH,URINE 6.5 (5.0-8.0)
[2017-08-05 22:34] LABS: OCCULT BLOOD,URINE NEGATIVE (NEGATIVE)
[2017-08-05 22:37] VITALS: BP 181/79; PULSE 93; RESP 20; O2SAT 82
[2017-08-05 23:21] VITALS: PULSE 86
[2017-08-05 23:30] VITALS: PULSE 90; RESP 18; O2SAT 100
[2017-08-06] VITALS (14 sets, daily range): BP systolic 99–188; BP diastolic 51–77; PULSE 85–109; RESP 15–28; O2SAT 78–96
[2017-08-06] MEDS: Heparin 5,000 Unit/mL Inj SUBQ SCH ×3 (00:30→17:23)
[2017-08-06] MEDS: lamoTRIgine 100 mg Tablet PO SCH ×2 (00:47→19:36)
[2017-08-06] MEDS: Albuterol-Ipratropium 3 mL Inhalation Solution NEB SCH ×4 (07:57→20:30)
[2017-08-06] MEDS: DULoxetine 30 mg DR Capsule PO SCH (08:13)
[2017-08-06] MEDS: HYDROcodone-APAP 5-325 mg Tablet PO SCH ×3 (08:14→19:33)
[2017-08-06] MEDS: BusPIRone 15 mg Dividose Tablet PO SCH (08:14)
[2017-08-06] MEDS: Fluticasone 0.05% 15 Spray/2 Gm 16 Gm Nasal Spray NASAL SCH (08:15)
[2017-08-06] MEDS: Famotidine Inj 20 MG in IV Premix 1 EACH IV SCH ×2 (08:15→20:25)
[2017-08-06] MEDS ORDERED: MethylprednisoLONE Sodium Succinate 40 mg/mL Inj IVPUSH SCH (08:30)
--- NOTE | 2017-08-06 11:50 | PCM.PNMED ---
Subjective Date of Service Aug 06, 2017 Subjective pt was severely hypoxic on Oxymask, down to mid70s, very confused but no leathargic, unclear baseline MS, no cough, no sputum, noticed. unable to get meaningful hx, mumbling Exam Vital Signs Vital Sign - Last Date Time Temp Pulse Resp B/P Pulse Ox O2 Delivery O2 Flow Rate FiO2 08/06/17 11:26 36.6 108 28 188/70 78 OxyMask 7.00 Intake and Output 08/05/17 08/05/17 08/06/17 Cumulative From/Thru 15:00 23:00 07:00 08/05/17 22:15 - 08/06/17 06:36 Intake Total 0 ml 0 ml Output Total 200 ml 300 ml 500 ml Balance -200 ml -300 ml -500 ml Intake Oral 0 ml 0 ml Output Urine Total 200 ml 300 ml 500 ml # Bowel Movements 0 0 Exam cachectic female, unable to finish full sentences, no accessory muscle use, no JVD, MMM, no LAD tachy, nl s1, s2 no mrg decreased BS on RLF, mild crackles, no wheezing S,ND,NT,normoactive BS+ warm, no edema, pulses 2/2 IVs and Medications Medications Reviewed: Medications were reviewed in detail Lab and Diagnostics Result Diagram: 08/05/170 08/05/17 1850 X-Rays, CTs and MRIs Chest x-ray 1. Diffuse right pulmonary opacities and left basilar radiopacity suspicious for aspiration/infection. These findings have increased in extent when compared with the prior study dated 07/23/17 2. Marked gaseous distention of the bowel suspicious for distal obstruction or ileus. Dictated by: Sherry Pena M.D. on 08/05/2017 at 19:06 Assessment & Plan 67-year-old female with a past psychiatric history and mental decline, hypertension, pulmonary fibrosis, and COPD who presented to the emergency department due to 7-10 days of increased shortness of breath and chest pressure. Acute Hypoxic respiratory failure, POA, Patient found to be severely hypoxic with sats in the 70s. CXR showed probable aspiration/PNA given increased opacities on RLF, marked gastric distention on Left side. ABG showed hypoxemia [id number] on 28%Fio2. -respiratory status still remains unstable with severe hypoxia, with neb tx, steroid -continue O2 supplement, target>95%, if hypoxia continues, will transition to [facility]NC at [facility] -will repeat CXR today, likely ABG, possible CT chest as well, -will try make good BM given concern for ileus interfering ventilation probable acute COPD exacerbation with possible pneumonia, POA, not on home O2 s/ p Methylprednisolone 40 mg IV, -although low suspicion for COPD flare, will continue standing neb and steroid today. -DuoNeb every 4 while awake -Azithromycin (5day course) and continue ceftriaxone; her daughter home has 4 tenets and no nursing so will not cover for age -procalcitonin normal; repeat in am -Sputum culture -Respiratory PCR -Home medications include pro-air, nebulized albuterol, Qvar -Continue flonase Subacute and progressive encephalopathy in a setting of psychiatric disorder; present on admission; ongoing -Reported mental decline over the last 3 months; following with [facility] -Friend is concerned she is to many psychiatric medications -CT of the head was normal -TSH WNL -Continue home medications for now -Lamotrigine, olanzapine, duloxetine, clonazepam, ziprasidone -Consider psychiatry consult for recommendations on medications Chronic pain with narcotic dependence; stable -Continue home hydrocodone Hypothyroidism-continue home levothyroxine 75 g. Check TSH Hypertension-no home meds listed in currently normotensive Insomnia-uses clonazepam at home; will treat as needed/requested Headaches-continue home topiramate GERD-famotidine 20 mg IV Osteoporosis-will not continue risedronate on admit; consider adding if extended LOS Disposition: prolonged given unstable respiratory status addendum> As per friend, pt has hx of pulmonary fibrosis from OD 20yrs ago, was not on Home O2, intermittently took steroid. pt has been declining generally, less appetite, forgetful, wt loss for past yr. This PM, pt was noted to have persistent labored breathing, CXR showed rapid worsening of bilateral opacities , O2 requirement slowly went up to 9liter Oxymask, pt still remained afebrile, BP noted to be elevated all day 150-180s, likely result of respiratory distress or possibly initial insult for pulmonary edema, given concern for flash pulmonary edema and/or ARDS, will try [id number] iv, slaughter, start BiPAP, transfer to [facility] for further care. GI Prophylaxis: H2 elsie VTE Prophylaxis: Sub-Q Heparin (Unfractionated) VTE Mechanical Devices: Intermittant Pneumatic CD Resuscitation Status: DNR/DNI:Do Not Resuscitate/Intubate Time spent 35min Zac Jay MD Aug 06, 2017 11:42
[2017-08-06 12:52] LABS: BASOPHILS % (AUTO) 0.1 % (0-3); EOSINOPHILS % (AUTO) 0 % (0-5); MONOCYTES % (AUTO) 4.1 % (4-12); Mean Corpuscular Hemoglobin 30.5 pg (27.0-35.0); Mean Corpuscular Volume 94.5 fL (81-100); NEUTROPHILS % (AUTO) 93.8 % (40-74); Platelet Count 477 bil/L (150-400)
[2017-08-06 13:26] LABS: Magnesium 2.5 mg/dL (1.6-2.6)
--- NOTE | 2017-08-06 13:34 | DRSVH ---
PROCEDURE: X-RAY CHEST ONE VIEW, PORTABLE ([id number]) INDICATIONS: 67 year-old female with worsening hypoxia. TECHNIQUE: One view of the chest was acquired. COMPARISON: [facility], CR, XR CHEST 1VW (PORTABLE), 08/05/2017, 18:57. [facility], CR, XR CHEST 1VW (PORTABLE), 07/23/2017, 11:33. [facility], CR, XR CHEST 2VW, , 9:15. FINDINGS: Surgical changes and devices: None. Lungs and pleura: Lung volumes are decreased. Widespread bilateral airspace and interstitial opacitie s have increased. No pleural effusions or pneumothorax. Mediastinum: Mediastinal contours appear normal. Heart size is normal. Bones and chest wall: No suspicious bony lesions. Overlying soft tissues appear unremarkable. IMPRESSION: Interval increased degree of widespread bilateral pulmonary edema and/or bronchopneumonia . Dictated by: Nathan Sauceda M.D. on 08/06/2017 at 13:31 Approved by: Nathan Sauceda M.D. on 08/06/2017 at 13:32
[2017-08-06] MEDS ORDERED: Furosemide 10 mg/mL 2 mL Inj IVPUSH ONE (15:20)
--- NOTE | 2017-08-06 15:53 | NUR ---
Social Work: Brief Note Data & Assessment: EMR reviewed. Patient is a 67 year old female who was admitted on 08/05/2017 for COPD and Pneumonia per H&P. Patient's insurance is [facility] [place] Medicare and [facility] Supp. Patient's PCP is Ainsley Hinson MD. SW visited patient's room in an attempt to complete initial assessment. SW was unable to complete assessment. Staff was at bedside and were in the process of transferring patient to another unit. Patient will transfer to room # 2012. SW will continue to follow. Plan: Patient will be revisited to complete initial assessment at a later time. SW will continue to follow. ALISSA Ferguson
--- NOTE | 2017-08-06 16:10 | NUR ---
Transfer to PCC Patient needed more and more o2(up to 9L) to keep sat at 88%. MD decided to transfer patient to [facility] to be on BiPap. MD also ordered 20mg IV lasix before patient transfers. Gave report to Johana Hall. Patient transferred to 2011 at 1541 on 10L oximask.
--- NOTE | 2017-08-06 17:03 | ABG ---
DateTimeAnalyzed 16:55:00 -_ pH ____7.400 - 7.350 7.450 pCO2 ___39.1__ -mmHg 35.0 45.0 pO2 ___76.8__ -mmHg 69.0 116 HCO3- ___23.7__ -mmol/L 22.0 26.0 ABE ___-0.4__ -mmol/L -2.0 2.0 tHb ___11.1__ -g/dL 12.0 18.0 O2Hb ___93.3__ -% COHb ____1.0__ -% 0.0 1.5 MetHb ____1.0__ -% 0.4 1.5 sO2 ___95.2__ -% FIO2 ___50.0__ -% Pressure_Support ___10.0__ -cmH2O CPAP ____4.0__ -cmH2O Set_RR ___16.0__ -b/min Drawn By gj - Date/Time Notified____ 17:03:00 -_ Spontaneous_RR ___22.0__ -b/min Oxygen Device 1 ____BIPAP - Notified By GJ - Notified Whom ___DR. SONG - B 755 -mmHg tO2 ___14.6__ -Vol% Josh test _Positive -
[2017-08-06] MEDS ORDERED: LORazepam 2 mg Tablet PO ONE (18:05)
--- NOTE | 2017-08-06 18:39 | NUR ---
Respiratory, anxiety pt. transferred from [facility] to [facility] 2011 this afternoon. RT placed pt. on bipap; pt. unable to tolerate for longer than several hours on 50% with sats 95-96%; pt. became increasingly anxious, constantly pulling at mask, swinging legs out of bed, sats down to upper 60's while struggling to take mask off. MD notified; RT at bedside switched bipap to high flow o2 at 60% and 50L; pt. given ativan 2mg po x1 per md orders; pt. sats at rest with high flow o2 92-95%. Sitter at bedside with patient. Pt. confused, trying to get oob to get green jug out of living room; not easily redirected; hard to understand; Marjorie, friend states patient is a little confused at baseline but nothing like she has been this last week. Spoke with MD several times regarding patient anxiety; awaiting prn orders.
--- NOTE | 2017-08-06 19:19 | NUR ---
khanh Amador, pt. friend took pt. khanh home until pt. more A&O
[2017-08-06] MEDS: cefTRIAXone Inj 2,000 MG in Dextrose 5% Minibag Plus 50 ML IV SCH (19:41)
--- NOTE | 2017-08-06 20:55 | ABG ---
DateTimeAnalyzed 20:46:08 -_ pH ____7.429 - 7.350 7.450 pCO2 ___38.4__ -mmHg 35.0 45.0 pO2 ___57.9__ -mmHg 69.0 116 HCO3- ___25.4__ -mmol/L 22.0 26.0 ABE ____1.0__ -mmol/L -2.0 2.0 tHb ___11.2__ -g/dL 12.0 18.0 O2Hb ___90.0__ -% COHb ____1.0__ -% 0.0 1.5 FIO2 ___50.0__ -% Drawn By MK - Date/Time Notified____ 20:54:00 -_ Liter_Flow ___50.00_ -L/min Oxygen Device 1 high flow - Notified By MK - K+ ____3.4__ -mmol/L 3.5 5.0 Josh test _Positive -
[2017-08-06] MEDS: Azithromycin Inj 500 MG in Dextrose 5% w/Vial Mate 250 ML IV SCH (21:08)
--- NOTE | 2017-08-06 22:58 | NUR ---
Neuro/ Mentation/ Respiratory Immediately after report RN to room, bed alarm and isak alarm placed on Pt. Pt noted to be very confused and agitated- speech garbled and noncoherent, pt attempting to climb out of bed, HR in the 1teans and Sp02 decreasing despite highflow. Pt not easily redirected. Plant Culture Manager from pt uatsdin at bedside states "this is very unlike her, she was only able to say about 5 coherent words of the [place]" HS meds, including psych meds given as ordered. Pt able to follow direction well with swallowing pills in apple sauce. shortly after pt settled in and began to relax. Although drowsy- pt awakes to verbal/ tactile stimuli and is able to say her name, and that she is in [place], although he speech remains still very mumbled she was also able to squeeze both hands, smile and stick out her tongue on command. Dr Traore notified of pt current situation as asked to come to assess pt. MD at bedside- ABG ordered, when resulted pt cook paged with results- no new orders at this time. When pt reassessed about an hour later she was noted to be totally somnolent- not responding to sternal rub. Vitals stable, RR 15-20, sp02 low 90s. HR 80s and bp 103/51. Dr. Traore notified about pts change in neuro status. MD at bedside to assess pt. MD states current condition r/t pt current heavy dosages of psych medications. MD states to monitor RR and notify if any changes. Neuro status still remains unchanged. Care ongoing.
[2017-08-06] MEDS ORDERED: 0.9% Sodium Chloride 250 ML IV ONE (23:55)
[2017-08-06] MEDS ORDERED: 0.9% Sodium Chloride 250 ML IV PRN (23:55)
[2017-08-07] VITALS (16 sets, daily range): BP systolic 93–137; BP diastolic 52–71; PULSE 83–107; RESP 14–27; O2SAT 69–99
--- NOTE | 2017-08-07 00:12 | NUR ---
BP/ Urine output Pt BP noted to be decreasing to 90s/50s. Urine output minimal- only 100cc dark patrick urine drained from slaughter @2330 since change of shift. Per repot 20 IV Lasix given and pt put out 800ml of urine. Update given to Dr. Traore - order received for 250 ML bolus of NS. Order to given additional NS bolus for MAP less then 65. post NS bolus BP 93/60 with MAP of 71. Will continue to monitor- pt still remains non responsive. MD aware. frequent vitals. Addendum: 08/07/17 at 0515 by JASWINDER FREDERICK RN Additional 250 NS bolus given per order to maintain BP. BP improved after second bolus 100s-1teens/60s. Urine output still minimal- total 200ml per shift. aware, no new orders at this time. Pt slightly more responsive this am- moving arms and legs- moans to stimuli. care ongoing.
[2017-08-07] MEDS: Heparin 5,000 Unit/mL Inj SUBQ SCH ×3 (01:14→16:30)
[2017-08-07 02:49] LABS: BASOPHILS % (AUTO) 0.1 % (0-3); EOSINOPHILS % (AUTO) 0.4 % (0-5); Mean Corpuscular Hemoglobin 30.7 pg (27.0-35.0); Mean Corpuscular Volume 96.2 fL (81-100); NEUTROPHILS % (AUTO) 78.4 % (40-74); Platelet Count 408 bil/L (150-400)
[2017-08-07 03:09] LABS: Magnesium 2.6 mg/dL (1.6-2.6)
[2017-08-07] MEDS: Albuterol-Ipratropium 3 mL Inhalation Solution NEB SCH ×4 (08:10→20:15)
[2017-08-07] MEDS: HYDROcodone-APAP 5-325 mg Tablet PO SCH ×3 (08:30→19:07)
[2017-08-07] MEDS ORDERED: predniSONE 20 mg Tablet PO SCH (08:30)
--- NOTE | 2017-08-07 09:16 | ABG ---
DateTimeAnalyzed 09:09:00 -_ pH ____7.393 - 7.350 7.450 pCO2 ___36.7__ -mmHg 35.0 45.0 pO2 137 -mmHg 69.0 116 HCO3- ___21.9__ -mmol/L 22.0 26.0 ABE ___-2.1__ -mmol/L -2.0 2.0 tHb ___11.1__ -g/dL 12.0 18.0 O2Hb ___96.0__ -% COHb ____1.0__ -% 0.0 1.5 MetHb ____0.9__ -% 0.4 1.5 sO2 ___97.9__ -% FIO2 ___90.0__ -% Drawn By jj - Date/Time Notified____ 09:16:00 -_ Liter_Flow ___45.0__ -L/min Oxygen Device 1 _highflow - Notified By jj - Notified Whom RN Jennifer Flowler -____ B 756 -mmHg tO2 ___15.2__ -Vol% Josh test _Positive -
[2017-08-07] MEDS ORDERED: Haloperidol 5 mg/mL Inj ONE (09:29)
[2017-08-07] MEDS: Fluticasone 0.05% 15 Spray/2 Gm 16 Gm Nasal Spray NASAL SCH (10:55)
[2017-08-07] MEDS: Furosemide 10 mg/mL 4 mL Inj IVPUSH SCH ×2 (10:55→20:30)
[2017-08-07] MEDS: Famotidine Inj 20 MG in IV Premix 1 EACH IV SCH ×2 (10:56→21:12)
--- NOTE | 2017-08-07 11:14 | DRSVH ---
PROCEDURE: X-RAY CHEST ONE VIEW, PORTABLE ([id number]) INDICATIONS: possible ARDS, pul edema TECHNIQUE: One view of the chest was acquired. COMPARISON: [facility], CR, XR CHEST 1VW (PORTABLE), 07/23/2017, 11:33. [facility], CR, CHEST 2VW, 09/17/2014, 12:54. [facility], CR, XR CHEST 1VW (PORTABLE), 2016, 18:57. [facility], CR, XR CHEST 1VW (PORTABLE), 08/06/2017, 12:54. FINDINGS: Surgical changes and devices: None. Lungs and pleura: Lung volumes are decreased. Widespread bilateral airspace and interstitial opacitie s unchanged. No pleural effusions or pneumothorax. Chronic interposition of bowel between the right and left hemidiaphragms and liver/spleen respectively. Mediastinum: Mediastinal contours appear normal. Heart size is normal. Bones and chest wall: No suspicious bony lesions. Overlying soft tissues appear unremarkable. IMPRESSION: 1. Widespread bilateral pulmonary edema and/or pneumonia similar to prior examination. Dictated by: Mk Jensen A Interpreted: Rosie Weston MD on 08/07/2017 at 10:05 Approved by: Rosie Weston MD, PhD on 08/07/2017 at 11:11
--- NOTE | 2017-08-07 11:30 | DRSVH ---
[facility] [address] [place] [address] Echocardiogram Report Name: KENAN WHITNEY KStudy Date: Height: 62 in Hospital Exam Location: [facility] Weight: 80 lb Gender: Female BSA: 1.3 m2 : 1950 Age: 67 yrs BP: 182/127 m mHg Reason For Study: Pneumonia Ordering Physician: HOSPITALIST [facility] Performed By: Carol Gonzales Referring Physician: [facility] Interpretation Summary The left ventricle is normal in size, wall thickness, and systolic function without any focal wall motion abnormalities. The ejection fraction is estimated to be 60-65%. LVEF has not changed since prior study. The right ventricle is normal in size and function. The right ventricular systolic pressure is estimated at 57 mmHg assuming a right atrial pressure of 8 mm Hg. The left atrial size is normal. Right atrial size is normal. There is mild mitral annular calcification. The mitral valve leaflets appear mildly thickened, but open well. The mitral valve leaflets appear myxomatous. There is trace mitral regurgitation. The aortic valve is not well visualized. Compared to the prior echo study, the aortic stenosis is a new finding. There is mild to moderate aortic stenosis. The calculated aortic valve area is 1.2 cm2. The peak aortic velocity is 2.9 m/sec. The peak aortic velocity on the previous exam was 1.4 m/sec. There is mild aortic regurgitation. Compared to the prior echo study, there has been an increase in the severity of aortic regurgitation. The aortic root is normal size. Procedure: A two-dimensional transthoracic echocardiogram with color flow and Doppler was performed. The study quality was technically difficult. Comparison is made with the echocardiogram of 11/01/2012. Patient was supine for the exam. She was very confused and unable to cooperate. The patient was in sinus tachycardia with heart rates between 103-114 bpm during the exam. Left Ventricle: The left ventricle is normal in size, wall thickness, and systolic function without any focal wall motion abnormalities. The ejection fraction is estimated to be 60-65%. Diastolic function could not be accurately assessed due to tachycardia. Right Ventricle: The right ventricle is normal in size and function. Atria: The left atrial size is normal. Right atrial size is normal. The interatrial septum is intact with no evidence for an atrial septal defect. Mitral Valve: There is mild mitral annular calcification. The mitral valve leaflets appear mildly thickened, but open well. The mitral valve leaflets appear myxomatous. There is trace mitral regurgitation. Aortic Valve: The aortic valve is not well visualized. Compared to the prior echo study, the aortic stenosis is a new finding. There is mild to moderate aortic stenosis. The calculated aortic valve area is 1.2 cm2. The peak aortic velocity is 2.9 m/sec. The peak aortic velocity on the previous exam was 1.4 m/sec. There is mild aortic regurgitation. Compared to the prior echo study, there has been an increase in the severity of aortic regurgitation. Tricuspid Valve: The tricuspid valve is normal. There is mild to moderate tricuspid regurgitation. The right ventricular systolic pressure is estimated at 57 mmHg assuming a right atrial pressure of 8 mm Hg. Pulmonic Valve: The pulmonic valve is not well visualized. There is a trace or physiologic amount of pulmonic regurgitation. Great Vessels: The aortic root is normal size. The ascending aorta could not be visualized. The aortic arch could not be visualized. The pulmonary is not well visualized. The IVC is dilated (diameter is greater than 2.1 cm) yet it collapses greater than 50% with a sniff. This suggests a right atrial pressure of 8 mm Hg. Pericardium/ Pleura There is no pericardial effusion. Pleural effusion noted. MMode/2D Measurements & Calculations LVIDd: 4.1 cm LVIDs: 3.0 cm LA A2 area: 9.2 cm FS: 27.9 % LA A4 area: 14.0 cm IVSd: 0.82 cm LA length (vol): 4.7 cm LVPWd: 0.82 cm LA vol: 23.0 ml LA vol index: 17.8 ml/m IVC diam: 2.2 cm RA long axis: 4.2 cm LVOT diam: 2.0 cm RA area: 12.4 cm Ao root diam: 3.1 cm RA vol: 31.0 ml RA : 23.9 ml/m2 LV phan. diameter/BSA (cm/m^2): 3.2 LV sys. diameter/BSA (cm/m^2): 2.3 RVD1 (basal): 2.9 cm TAPSE: 2.2 cm Doppler Measurements & Calculations Ao V2 max: 286.1 cm/sec MV E max kristian: 60.3 cm/sec Ao max P.7 mmHg MV A max kristian: 77.0 cm/sec Ao mean P.9 mmHg MV P1/2t: 52.0 msec LVOT Max Kristian: 118.9 cm/sec DMITRY(I,D): 1.2 cm sev ratio: 0.40 MV E/A: 0.78 TR max kristian: 350.7 cm/sec Med Peak E' Kristian: 7.3 cm/sec TR max P.4 mmHg E/E' med: 8.3 Lat Peak E' Kristian: 9.4 cm/sec E/E' lat: 6.4 E/e' average: 7.4 MV P1/2t max kristian: 59.7 cm/sec Ao V2 mean: 210.1 cm/sec Ao V2 VTI: 44.3 cm MVA(P1/2t): 4.2 cm2 DMITRY(V,D): 1.2 cm2 LV V1 max P.7 mmHg DMITRY indexed to BSA (cm^2/m^2): 0.93 LV V1 VTI: 17.8 cm Reading Physician:PACO
--- NOTE | 2017-08-07 13:06 | NUR ---
Social Work: Initial Assessment/Multidisciplinary Rounds D: Per EMR review, pt is a 67 year old female admitted for COPD, Pneumonia. Pt is [facility] with Medicare and [facility] supplement; no additional insurance or VA benefits. PCP is Ainsley Hinson MD. NOK is Jennifer Lee dtr. Advanced directives completed- ELECTRICAL EQUIPMENT TECHNICIAN requested copy. Readmit score is high. Pt discussed in multidisciplinary rounds; the patient is not medically stable for discharge and is a transfer from [facility]. The patient lives at and adult family home, which one ELECTRICAL EQUIPMENT TECHNICIAN needs to determine. ELECTRICAL EQUIPMENT TECHNICIAN attempted to meet with the patient at bedside however patient is very confused and not able to speak clearly. T/c to patient's daughter, Jennifer Lee to complete IA. Social work/dcp role explained, contact information and discharge planning checklist left at bedside. See initial assessment. She confirms pt is a resident at [facility], an adult [facility]. She states that at baseline patient is confused but is I with ambulation. They have noticed a very quick decline in patient's condition reporting increased weakness requiring the use of a walker. The patient has a history at [facility] and out patient HH services. The household refrigerator mechanic at the [facility] is Lori Tapiaboo ([phone]). Daughter states that she is not involved in day-to-day care of her mom as it agitates the patient and they do not have a constructive relationship. She states that the patient is involved with care at [facility]. t/c to Lori Delgado, she confirms the information provided by the daughter and states that they can accept the patient back when she is medically sable. The patient typically uses [facility] or [facility] for transport. t/c from pt's HCS worker, Brook Warner. ELECTRICAL EQUIPMENT TECHNICIAN left message for her ([phone]). requested return phone call and requested occupational safety specialist fax clinicals. A: Pt who is a resident at a local [facility]. P: Anticipate patient to return back to her AF once medically stable; ELECTRICAL EQUIPMENT TECHNICIAN to continue to follow to assess for unmet d/c needs. ALISSA Brandon Addendum: 08/07/17 at 1316 by ARIAS BRADEN SS Amended: Links added.
[2017-08-07] MEDS: DULoxetine 30 mg DR Capsule PO SCH (13:09)
[2017-08-07] MEDS: BusPIRone 15 mg Dividose Tablet PO SCH (13:09)
--- NOTE | 2017-08-07 13:58 | NUR ---
NUTRITION ASSESSMENT: ASSESS: Pt is a 67yo F admitted for COPD and pneumonia. Pt is currently experiencing AMS. Spoke mainly with pts friends as pt was not able to have a coherent conversation. They reported that typically she has a really good appetite but the last month she has not been eating well and has no desire to eat. Per chart review, UBW is ~110lbs (50kg), current wt is 79lbs (36.2kg) =27.6% wt loss x 1 year. Pt has severe muscle and fat loss. She is currently on a heart healthy/consistent carb diet but friends reported that she typically has trouble chewing food. ST eval is to be ordered. PMHX: psychiatric disorders, HTN, hypothyroidism, pulmonary fibrosis, COPD LABS: Reviewed. <.3, Ca 7.7, Alb 3.2 MEDS: Reviewed. Prednisone, Lasix GI: 0 BM SKIN: Altaf 15, wound care consult pending. Pt has visible severe muscle/fat loss CURRENT WTS: 36.2kg, BMI 14.6kg/m2, admit wt 40kg, IBW: 50kg, UBW: 50kg, reported 27.6% wt loss x1 year. DIET: Heart healthy/consistent carb, PO refused-bites EST. NEEDS: wt Kcals: 1085-1265kcal/day (30-35kcal/kg) Pro: 60-75g/day (1.2-1.5g/kg IBW) NUTRITION DIAGNOSIS: 1.) Severe pro/kcal malnutrition in the context of chronic illness related to COPD as evidence by pt with 27.6% wt loss x1 year, severe body fat and muscle loss, PO of <75% of estimated energy requirements for >1 month. NUTRITION INTERVENTION: 1.) Pt's friends reported that pt likes Chocolate so will send chocolate ensure on L tray. Will send high kcal/pro and soft foods that pt may be more likely to tolerate (cottage cheese w/peaches, mashed potatoes w/gravy and butter, mac and cheese). 2.) Pt would benefit from ST eval. Will monitor for eval/diet recommendation MONITOR / EVAL: PO, wt, gi ,labs, ST, POC, nutrition status. Will continue to monitor per high nutrition risk guidelines
[2017-08-07] MEDS ORDERED: Haloperidol 5 mg/mL Inj IVPUSH SCH (15:10)
[2017-08-07] MEDS ORDERED: Haloperidol 5 mg/mL Inj IVPUSH PRN (15:20)
--- NOTE | 2017-08-07 17:37 | NUR ---
Restlessness 0820 - Had been in the room with Respiratory Therapist Elle. Noted her decreasing SpO2 into the 70s, increased restlessness, and partial change in color. Elle increased her high flow O2. Notified Dr. Gibson of these changes who said he would come by to see her. 0840 - Spoke to Dr. Wilder and updated him on her condition. By then her saturation had increased into the 90% range. He ordered restraints for her restlessness and pulling at her lines. 0900 - Started the soft hand mitten restraints. Dr. Rebollar came by and was notified that, per steward/stewardess night's report, her home medications needed reviewing and that she possibly needed a psych consult. This information was acknowledged. 0935 - Dr. Rebollar and Dr. Gibson were in her room and wanted 2mg of IV Haldol given. Gave it too her. She was able to settled down for a few minutes, fell asleep, but quickly awoke and became restless again. 0940 - Discussed her care with Dr. Wilder, Dr. Gibson, and the rest of the multidisciplinary care team during morning rounds. 1051 - Paged Dr. Rebollar for more Haldol as she had remained restless. Spoke to Dr. Rebollar in the hallway shortly after. He said he would look into getting her something. 1110 - Spoke to Dr. Wilder who requested records from her PCP and the facility she had been staying at. Notified the Ob Scrub Tech who worked to get her records. He said the daughter would be called as well. 1254 - Paged Dr. Rebollar for some possible Ativan as the Haldol had not seemed to work long and she was still very restless. Also, asked him if he called the daughter. He said he had not been able to call the daughter yet. He requested that Dr. Gibson be contacted as he was in clinic now. Paged Dr. Gibson who said he would look into a medication to calm her down and call the daughter. 1420 - Talked to Dr. Mccoy about this patient possibly going on comfort care. He said he would order some IV Morphine. Notified Dr. Gibson of this and gave the patient some 2mg of IV morphine which allowed her to calm down and sleep for about an hour. Continued to give her IV morphine as needed throughout the rest of the day. 1550 - Noted a Speech Therapy assessment order. Spoke to Amber who said she, unfortunately, did not have time to assess her today, but would assess her tomorrow. Explained that the pt had been choking on water and staff had to limit her intake to water soaked sponges and applesauce/pudding. She said to change her diet to pureed which was done. 1810 - Dr. Gibson came by to say that he had talked to his daughter a couple times today and she decided to place her mom on comfort care. He said he would order some more medications and try to keep her on partial comfort care measure tonight so that her daughter could see her one last time tomorrow. Her daughter has been unable to make it here today due to child care coordinator. The patient has remained comfortable with IV pushes of morphine. Currently sleeping with two of her friends at her bedside. Care continues. Addendum: 08/07/17 at 1837 by ELIDIA CAZARES RN 1829 - Went to check on her. Her daughter had driven up from [place] and had arrived to be with her mother. Was in agreement with her comfort care and stated that her goals of care would be to keep her mother comfortable and not prolong her suffering. Educated her and the friend on end of life vital changes as they had requested. Care continues. Addendum: 08/07/17 at 1918 by ELIDIA CAZARES RN [id number] - Paged Dr. Gibson who called back. Notified him of the daughter's arrival and her goals/requests of care. He said he just wanted to keep her on partial comfort care tonight. Care continues.
--- NOTE | 2017-08-07 19:00 | NUR ---
Wound Care Pressure ulcer protocol received, pt seen at bedside with nursing. Alyssa female in soft restraints restless in a ccu sport bed, admitted with shortness of breath and has history of psychiatric treatment. She does not really respond to questions in any coherent manner for me today. All mendoza prominences were assessed, currently her spinous processes of thoracic spine are protected with mepilex adhesive foam, this is protective only in nature as I can see no underlying redness. She does have an area of unblanchable redness which encompasses her complete sacrum and coccyx, a mepilex adhesive foam is placed here, I have great concern that given her restless and almost agitated state and her inability to remain repositioned frequently that her sacrum and coccyx at at high risk for breakdown. Stage 1 PI sacrum and coccyx POA, bed is appropriate, continue to frequently reposition and educate about skin risks. Will follow as needed.
--- NOTE | 2017-08-07 19:37 | PCM.PNMED ---
Subjective Date of Service Aug 07, 2017 Subjective Subjective: Due to the patient being confused she is unable to participate in her care at this time. Events Overnight: No acute events overnight. ROS: Due to the patient being confused, a review of systems was unable to be obtained. Exam Vital Signs Vital Sign - Last Date Time Temp Pulse Resp B/P Pulse Ox O2 Delivery O2 Flow Rate FiO2 08/07/17 16:57 119 24 96 Nasal Cannula 50 95 08/07/17 16:52 37.7 137/71 Intake and Output 08/06/17 08/06/17 08/07/17 Cumulative From/Thru 15:00 23:00 07:00 08/05/17 22:15 - 08/07/17 05:12 Intake Total 240 ml 900 ml 1140 ml Output Total 1200 ml 200 ml 1900 ml Balance -960 ml 700 ml -760 ml Intake Oral 240 ml 100 ml 340 ml IV Total 800 ml 800 ml Output Urine Total 1200 ml 200 ml 1900 ml # Bowel Movements 0 0 Exam General: Thin, cachectic, Moderate distress, well-developed, well-nourished Head: Normocephalic, atraumatic. External ears without defect. Eyes: Pupils equal, round, and reactive to light and accommodation. Anicteric sclerae, moist conjunctivae. Neck: Normal range of motion, no lymphadenopathy noted Cardiovascular: Pronounced aortic stenosis with radiation to the carotids, rubs , or gallops appreciated Pulmonary: Diffuse rales auscultated bilaterally, no wheezes, or rhonchi. Excessive respiratory effort with use of accessory muscles. Abdomen: Bowel tones present. Soft, nontender, nondistended. Extremities: Obvious clubbing, no cyanosis or edema Skin: Normal temperature, turgor, and texture; no rash, ulcers, or subcutaneous nodules appreciated. Neurological: Difficult to assess cranial nerves appear grossly intact Psychiatric: Patient is confused, Unable to assess IVs and Medications Medications Reviewed: Medications were reviewed in detail Lab and Diagnostics Result Diagram: 08/07/1722408/07/17224 X-Rays, CTs and MRIs Chest x-ray 1. Diffuse right pulmonary opacities and left basilar radiopacity suspicious for aspiration/infection. These findings have increased in extent when compared with the prior study dated 07/23/17 2. Marked gaseous distention of the bowel suspicious for distal obstruction or ileus. Dictated by: Sherry Pena M.D. on 08/05/2017 at 19:06 Assessment & Plan 67-year-old female with a past psychiatric history and mental decline, hypertension, pulmonary fibrosis, and COPD who presented to the emergency department due to 7-10 days of increased shortness of breath and chest pressure. Of note: Goals of care were discussed with the daughter on 08/07. Daughter states that her greatest concern is to make sure that her mother is comfortable. For this reason, comfort care measures were initiated including benzodiazepines for anxiety as well as morphine for shortness of breath. At this time we will continue all other medical treatments. We'll discuss further with the daughter her desires as far as continuing other medications such as home medications, steroids, and/or oxygen supplementation. Acute Hypoxic respiratory failure, POA, Patient found to be severely hypoxic with sats in the 70s. CXR showed probable aspiration/PNA given increased opacities on RLF, marked gastric distention on Left side. ABG showed hypoxemia [id number] on 28%Fio2. -respiratory status still remains unstable with severe hypoxia, with neb tx, steroid -Continue high flow nasal cannula, target>95%, titrating oxygen presents a difficult target as patient continually mouth breathing. -will repeat CXR continuing to show edema, ABG showing acute hypoxemia -Discussed with Daughter 08/07 goals for care, initiating comfort care measures with benzodiazepines for anxiety and morphine as needed for shortness of breath Probable acute COPD exacerbation with possible pneumonia, POA, not on home O2 s/ p - Continue Methylprednisolone 40 mg IV, -will continue standing neb and steroid today. -DuoNeb every 4 while awake -Continue antibiotics for now -procalcitonin normal -Sputum culture pending -Respiratory PCR negative -Home medications include pro-air, nebulized albuterol, Qvar -Continue flonase Subacute and progressive encephalopathy in a setting of psychiatric disorder; present on admission; ongoing -Reported mental decline over the last 3 months; following with [facility] -CT of the head was normal -TSH WNL -Continue home medications for now -Lamotrigine, olanzapine, duloxetine, clonazepam, ziprasidone -Discussed with Daughter 08/07 goals for care, initiating comfort care measures with benzodiazepines for anxiety and morphine as needed for shortness of breath Chronic pain with narcotic dependence; stable -Continue home hydrocodone Hypothyroidism-continue home levothyroxine 75 g. Check TSH Hypertension-no home meds listed in currently normotensive Insomnia-uses clonazepam at home; will treat as needed/requested Headaches-continue home topiramate GERD-famotidine 20 mg IV Osteoporosis-will not continue risedronate on admit; consider adding if extended LOS Disposition: Prognosis guarded at this time, patient is likely to pass away during this hospital stay. GI Prophylaxis: H2 elsie VTE Prophylaxis: Sub-Q Heparin (Unfractionated) VTE Mechanical Devices: Intermittant Pneumatic CD Resuscitation Status: DNR/DNI:Do Not Resuscitate/Intubate Attending Statement Patient is a 67-year-old lady with long history of psychiatric illness, tobacco dependence, COPD, severe protein calorie malnutrition and now acute hypoxemic respiratory failure requiring high flow oxygen who will likely transition to comfort care within the next 24 hours with expected in-hospital expiration. The patient was seen and examined together with Dr. Rebollar on 08/07/2017 and I agree with the history, exam and plan as outlined in the note above. . Morris Rebollar DO Aug 07, 2017 19:36 Narciso Wilder MD Aug 09, 2017 07:25
[2017-08-07] MEDS: lamoTRIgine 100 mg Tablet PO SCH (21:00)
[2017-08-07] MEDS: cefTRIAXone Inj 2,000 MG in Dextrose 5% Minibag Plus 50 ML IV SCH (22:18)
[2017-08-07] MEDS: Azithromycin Inj 500 MG in Dextrose 5% w/Vial Mate 250 ML IV SCH (23:11)
[2017-08-08] VITALS (12 sets, daily range): BP systolic 111–126; BP diastolic 61–75; PULSE 87–103; RESP 12–26; O2SAT 74–95
[2017-08-08] MEDS: Heparin 5,000 Unit/mL Inj SUBQ SCH (00:30)
--- NOTE | 2017-08-08 06:06 | NUR ---
Respiratory Pt has intermittent episodes of SOB and anxiety and is otherwise sleeping. Pt confused with mumbled speech when awake and often asks for sips of water. Pt O2 needs increase when awake. High flow O2 titrated to keep sats at 95%. Currently FiO2 at 45% with 35 L and saturation at 94% while resting. Pt given morphine 2mg for pain and haldol 2mg IV once. Continuing to monitor.
[2017-08-08] MEDS: Albuterol-Ipratropium 3 mL Inhalation Solution NEB SCH ×4 (07:26→20:30)
[2017-08-08] MEDS ORDERED: Morphine 100 mg/100 mL NS 100 MG in IV Premix 1 EACH IV SCH (10:30)
[2017-08-08] MEDS ORDERED: Haloperidol 5 mg/mL Inj IVPUSH PRN (10:30)
[2017-08-08] MEDS ORDERED: Glycopyrrolate 0.2 MG/ML 1mL Inj IVPUSH PRN (10:30)
[2017-08-08] MEDS ORDERED: Atropine 1% 5 mL Ophthalmic Solution PO PRN (10:30)
[2017-08-08] MEDS ORDERED: LORazepam 100 mg/100 mL NS 100 MG in IV Premix 1 EACH IV PRN (10:30)
--- NOTE | 2017-08-08 12:00 | NUR ---
Comfort Care Patients family decided to transition patient to comfort care. Morphine drip started at 1g/hr as well as lorazepam drip at 1mg/hour. Suppleental O2 removed from patient. Patietn positioned for comfort. Friends and family at bedside.
--- NOTE | 2017-08-08 12:46 | NUR ---
Inpatient Wound Nurse Patient is now comfort care. Patient's primary RN is following pressure relieving protocols and all Mepilex are in place as needed. No specific wound care needs identified at this time. CWON RN available if needed, primary RN aware.
--- NOTE | 2017-08-08 13:51 | NUR ---
Agitation Patient moaning and respirations 26/min. 2mg morphine bolus given and lorazepam drip increased to 1.5 mg/ hour. Family at bedside.
--- NOTE | 2017-08-08 16:05 | NUR ---
CUSTOMS AND BORDER PROTECTION OFFICER to sign off as patient is comfort care.
--- NOTE | 2017-08-08 19:08 | PCM.PNMED ---
Subjective Date of Service Aug 08, 2017 Subjective Subjective: Patient is confused and unable to participate actively in her care at this time. Events Overnight: No acute events overnight. ROS: Due to the patient being confused, a review of systems was unable to be obtained. Exam Vital Signs Vital Sign - Last Date Time Temp Pulse Resp B/P Pulse Ox O2 Delivery O2 Flow Rate FiO2 08/08/17 16:13 94 20 92 Nasal Cannula 35 45 08/08/17 15:34 36.4 111/61 Intake and Output 08/07/17 08/07/17 08/08/17 Cumulative From/Thru 15:00 23:00 07:00 08/05/17 22:15 - 08/08/17 05:27 Intake Total 420 ml 423 ml 1983 ml Output Total 1500 ml 250 ml 3650 ml Balance -1080 ml 173 ml -1667 ml Intake Oral 233 ml 0 ml 573 ml IV Total 187 ml 423 ml 1410 ml Output Urine Total 1500 ml 250 ml 3650 ml # Bowel Movements 0 0 0 Exam General: Thin, cachectic, Moderate distress, well-developed, well-nourished Head: Normocephalic, atraumatic. External ears without defect. Eyes: Pupils equal, round, and reactive to light and accommodation. Anicteric sclerae, moist conjunctivae. Neck: Normal range of motion, no lymphadenopathy noted Cardiovascular: Pronounced aortic stenosis with radiation to the carotids, rubs , or gallops appreciated Pulmonary: Diffuse rales auscultated bilaterally, no wheezes, or rhonchi. Excessive respiratory effort with use of accessory muscles. Abdomen: Bowel tones present. Soft, nontender, nondistended. Extremities: Obvious clubbing, no cyanosis or edema Skin: Normal temperature, turgor, and texture; no rash, ulcers, or subcutaneous nodules appreciated. Neurological: Difficult to assess cranial nerves appear grossly intact Psychiatric: Patient is confused, Unable to assess IVs and Medications Medications Reviewed: Medications were reviewed in detail Lab and Diagnostics Result Diagram: 08/07/1722408/07/17224 X-Rays, CTs and MRIs Chest x-ray 1. Diffuse right pulmonary opacities and left basilar radiopacity suspicious for aspiration/infection. These findings have increased in extent when compared with the prior study dated 07/23/17 2. Marked gaseous distention of the bowel suspicious for distal obstruction or ileus. Dictated by: Sherry Pena M.D. on 08/05/2017 at 19:06 Assessment & Plan 67-year-old female with a past psychiatric history and mental decline, hypertension, pulmonary fibrosis, and COPD who presented to the emergency department due to 7-10 days of increased shortness of breath and chest pressure. Of note: Goals of care were discussed with the daughter on 08/07. Daughter states that her greatest concern is to make sure that her mother is comfortable. For this reason, comfort care measures were initiated including benzodiazepines for anxiety as well as morphine for shortness of breath. All other medical treatments were continued at that time, however a discussion was held with the daughter on 08/08 who is under the impression that we were already withdrawing care. On 08/08 palliative care was consulted and patient was started on Ativan and morphine drips and supplemental oxygen was removed. Acute Hypoxic respiratory failure, POA, Patient found to be severely hypoxic with sats in the 70s. CXR showed probable aspiration/PNA given increased opacities on RLF, marked gastric distention on Left side. ABG showed hypoxemia [id number] on 28%Fio2. - Hypoxia and discontinued on 08/08 -CXRs continue to show edema, ABG showing acute hypoxemia -Discussed with Daughter 08/08 goals for care, initiating comfort care measures with benzodiazepines for anxiety and morphine as needed for shortness of breath Probable acute COPD exacerbation with possible pneumonia, POA, not on home O2 s/ p -procalcitonin normal -Sputum culture pending -Respiratory PCR negative -Discontinued on medical therapy at this time Subacute and progressive encephalopathy in a setting of psychiatric disorder; present on admission; ongoing -Reported mental decline over the last 3 months; following with [facility] -CT of the head was normal -TSH WNL -Discussed with Daughter 08/07 goals for care, initiating comfort care measures with benzodiazepines for anxiety and morphine as needed for shortness of breath Chronic pain with narcotic dependence; stable -Continue home hydrocodone Hypothyroidism Hypertension Insomnia Headaches GERD Osteoporosis Disposition: Comfort care measures have been initiated, patient is likely to pass away during this hospital stay. Pain Evaluation: Adequate Pain Control GI Prophylaxis: H2 elsie VTE Prophylaxis: Sub-Q Heparin (Unfractionated) VTE Mechanical Devices: Intermittant Pneumatic CD Resuscitation Status: DNR/DNI:Do Not Resuscitate/Intubate Attending Statement Patient is a 67-year-old lady with long history of psychiatric illness, tobacco dependence, COPD, severe protein calorie malnutrition and now acute hypoxemic respiratory failure requiring high flow oxygen who will transition to comfort care with expected in-hospital expiration. The patient was seen and examined together with Dr. Rebollar on 08/08/2017 and I agree with the history, exam and plan as outlined in the note above. . Morris Rebollar DO Aug 08, 2017 19:08 Narciso Wilder MD Aug 09, 2017 07:27
--- NOTE | 2017-08-08 20:45 | NUR ---
Patient's son in law at bedside notes cessation of respirations at 2019. Confirmed by charge nurse Guillermina. Patient's personal effects home with son in law.
--- NOTE | 2017-08-09 07:26 | PCM.DC.MEX ---
Discharge Summary Date of Service Aug 09, 2017 Dates of Hospitalization Date of Hospital Admission Aug 05, 2017 at 21:36 Date of Expiration: Aug 08, 2017 Time of Expiration: 20:53 Providers: Admitting Physician: Abdifatah Edmondson MD Primary Care Physician: Ainsley Hinson MD Attending Physician: Narciso Wilder MD Diagnosis at Time of Acute Hypoxemic hypercapnic respiratory failure Procedures XRay, CTs & MRIs Chest x-ray 1. Diffuse right pulmonary opacities and left basilar radiopacity suspicious for aspiration/infection. These findings have increased in extent when compared with the prior study dated 07/23/17 2. Marked gaseous distention of the bowel suspicious for distal obstruction or ileus. Dictated by: Sherry Pena M.D. on 08/05/2017 at 19:06 CT BRAIN WITHOUT CONTRAST IMPRESSION: 1. No acute intracranial findings. 2. Findings likely associated with chronic microvascular ischemia. Dictated by: Sherry Pena M.D. on 08/05/2017 at 20:07 Approved by: Sherry Pena M.D. on 08/05/2017 at 20:08 X-RAY CHEST ONE VIEW, PORTABLE IMPRESSION: Interval increased degree of widespread bilateral pulmonary edema and/or bronchopneumonia. Dictated by: Nathan Sauceda M.D. on 08/06/2017 at 13:31 Approved by: Nathan Sauceda M.D. on 08/06/2017 at 13:32 X-RAY CHEST ONE VIEW, PORTABLE IMPRESSION: 1. Widespread bilateral pulmonary edema and/or pneumonia similar to prior examination. Dictated by: Mk Jensen [facility] Interpreted: Rosie Weston MD on 08/07/2017 at 10:05 Approved by: Rosie Weston MD, PhD on 08/07/2017 at 11:11 Brief History Taken from the H&P completed by Dr. Traore: 67-year-old female with a history of multiple psychiatric disorders, hypertension, hypothyroidism, pulmonary fibrosis secondary to aspiration during suicide attempt 11 years ago, and COPD who presents to the emergency department from a nursing home for the EMS complaining of progressive shortness of breath over the last 7-10 days with intermittently productive cough. Patient states that 10 days ago she quit cigarettes in a few days afterwards she developed more marketed shortness of breath, chest pressure with reported radiation to the neck, and decreased exercise tolerance. She denies chest pain, fever, chills, nausea, vomiting, change in bowel or bladder habits. She is not on oxygen at the nursing home. Her friend is with her and reports that the patient has had a steady decline in mentation over the last few months. She is receiving care through [facility] and her friend states that there is a post needs a psychiatrist to review her medications to see if this is causing her decrease mental status. Last time patient was seen by pulmonology was in 2011, and there are no PFTs found in [facility]. In the Emergency department the patient was found to be severely hypoxic with sats in the 70s. Chest x-ray showed consolidations in the right lobe along with what appears to be large amounts of interstitial disease. Patient also had dilated loops of bowel and stomach which were increased from her last x- ray. She was given 125 mg of Solu-Medrol, started on ceftriaxone and azithromycin, and given magnesium, albuterol and ipratropium. Hospital Course 67-year-old female with a past psychiatric history and mental decline, hypertension, pulmonary fibrosis, and COPD who presented to the emergency department due to 7-10 days of increased shortness of breath and chest pressure. Of note: Goals of care were discussed with the daughter on 08/07. Daughter states that her greatest concern is to make sure that her mother is comfortable. For this reason, comfort care measures were initiated including benzodiazepines for anxiety as well as morphine for shortness of breath. All other medical treatments were continued at that time, however a discussion was held with the daughter on 08/08 who is under the impression that we were already withdrawing care. On 08/08 palliative care was consulted and patient was started on Ativan and morphine drips and supplemental oxygen was removed. Family and friends were in the room during the day to support the patient, the patient peacefully later that evening. Acute Hypoxic respiratory failure, POA, Patient found to be severely hypoxic with sats in the 70s. CXR showed probable aspiration/PNA given increased opacities on RLF, marked gastric distention on Left side. ABG showed hypoxemia [id number] on 28%Fio2. - Hypoxia and discontinued on 08/08 -CXRs continue to show edema, ABG showing acute hypoxemia -Discussed with Daughter 08/08 goals for care, initiating comfort care measures with benzodiazepines for anxiety and morphine as needed for shortness of breath Probable acute COPD exacerbation with possible pneumonia, POA, not on home O2 s/ p -procalcitonin normal -Sputum culture pending -Respiratory PCR negative -Discontinued on medical therapy at this time Subacute and progressive encephalopathy in a setting of psychiatric disorder; present on admission; ongoing -Reported mental decline over the last 3 months; following with [facility] -CT of the head was normal -TSH WNL -Discussed with Daughter 08/07 goals for care, initiating comfort care measures with benzodiazepines for anxiety and morphine as needed for shortness of breath Chronic pain with narcotic dependence; stable -Continue home hydrocodone Hypothyroidism Hypertension Insomnia Headaches GERD Osteoporosis Exam Test 08/05/17 18:50 08/05/17 19:23 08/05/17 22:19 08/06/17 12:37 Troponin T < 0.010ug/L (0.0-0.011) Pro-B-Type Natriuretic Peptide 322.0pg/mL (0-301) Lactic Acid Level 1.2mmol/L (0.4-2.0) Thyroid Stimulating Hormone (TSH) 0.765uIU/mL (0.450-4.500) Free Thyroxine 1.31ng/dL (0.82-1.77) Salicylates Level < 3.0ug/mL (30-250) Acetaminophen Level < 15.0ug/mL Rx (10-25) Alcohols < 10mg/dL (0-10) Urine Color Yellow (YELLOW) Urine Appearance Clear (CLEAR,HAZY) Urine pH 6.5 (5.0-8.0) Urine Specific [place] 1.020 (1.003-1.035) Urine Protein Tracemg/dL (NEG,TRACE) Urine Glucose (UA) Negativemg/dL (NEGATIVE) Urine Ketones 15mg/dL (NEGATIVE) Urine Occult Blood Negative (NEGATIVE) Urine Nitrite Negative (NEGATIVE) Urine Bilirubin Negative (NEGATIVE) Urine Urobilinogen 4.0mg/dL (NORMAL) Urine Leukocyte Esterase Negative (NEGATIVE) Urine RBC 0-2/hpf (0-2) Urine WBC 0-5/hpf (0-5) Urine Epithelial Cells Few/hpf (NONE-MOD) Urine Crystals Uric acid crystals (NONE Urine Bacteria Few/hpf (NONE-FEW) Urine Hyaline Casts None/lpf (NONE) Urine Granular Casts Occasional (NONE SEEN) Urine Waxy Casts None seen (NONE SEEN) Urine Red Blood Cell Casts None seen (NONE SEEN) Urine White Blood Cell Casts None seen (NONE SEEN) Urine Mucus Present (None Seen) Urine Trichomonas None seen (NONE SEEN) Urine Yeast None (NONE SEEN) Urinalysis Comment None Urine Culture Reflexed Not indicated Procalcitonin 0.09ng/mL (0.00-0.08) Test 08/07/17 02:25 White Blood Count 8.5th/mm3 (3.8-10.1) Red Blood Count 3.42mil/mm3 (3.90-5.20) Hemoglobin 10.5g/dL (12.0-15.6) Hematocrit 32.9% (35.0-46.0) Mean Corpuscular Volume 96.2fL (81-100) Mean Corpuscular Hemoglobin 30.7pg (27.0-35.0) Mean Corpuscular Hemoglobin Concent 31.9% (32.0-37.0) Red Cell Distribution Width 13.6% (12.3-15.4) Platelet Count 408bil/L (150-400) Neutrophils (%) (Auto) 78.4% (40-74) Lymphocytes (%) (Auto) 13.0% (14-46) Monocytes (%) (Auto) 8.0% (4-12) Eosinophils (%) (Auto) 0.4% (0-5) Basophils (%) (Auto) 0.1% (0-3) Sodium Level 143mEq/L (134-144) Potassium Level 3.6mEq/L (3.5-5.2) Chloride Level 105mEq/L (97-108) Carbon Dioxide Level 23mmol/L (18-29) Blood Urea Nitrogen 15mg/dL (8-27) Creatinine < 0.30mg/dL (0.57-1.00) Estimat Glomerular Filtration Rate 320mL/min (>59) Glucose Level 94mg/dL (60-99) Calcium Level 7.7mg/dL (8.5-10.1) Magnesium Level 2.6mg/dL (1.6-2.6) Total Bilirubin 0.2mg/dL (0.0-1.2) Aspartate Amino Transf (AST/SGOT) 29U/L (0-50) Alanine Aminotransferase (ALT/SGPT) 15U/L (0-32) Alkaline Phosphatase 119U/L (25-165) Total Protein 5.6g/dL (6.4-8.4) Albumin 3.2g/dL (3.4-5.0) Attending Statement The patient was seen and examined together with Dr. Rebollar on 08/08/2017 and I agree with the history, exam and plan as outlined in the note above. . copies to: Ainsley Hinson MD, Adam J DO Aug 09, 2017 07:26 Narciso Wilder MD Aug 09, 2017 07:29
[2017-08-12] MEDS ORDERED: RISEDRONATE SODIUM 35 MG PO SCH (08:30)
== END 2017-08-08 20:20 | disposition expired | DRG 189 ==
LOC: SED 18:17 → EDBD 18:17 → MPC 21:36 → PCC 08-06 15:58
PROVIDERS: ADMIT Hospitalist; ATTEND Internal Medicine
PROC: 4A033R1 Measurement of Arterial Saturation, Peripheral, Percutaneous Approach (ICD-10-PCS; principal; 2017-08-05)
DX: J96.01 Acute respiratory failure with hypoxia (principal); G93.40 Encephalopathy, unspecified; J69.0 Pneumonitis due to inhalation of food and vomit; F11.20 Opioid dependence, uncomplicated; J44.1 Chronic obstructive pulmonary disease with (acute) exacerbation; Z79.82 Long term (current) use of aspirin; Z87.891 Personal history of nicotine dependence; Z91.5 Personal history of self-harm; J84.10 Pulmonary fibrosis, unspecified; G89.29 Other chronic pain; E03.9 Hypothyroidism, unspecified; G47.00 Insomnia, unspecified; R51 Headache; K21.9 Gastro-esophageal reflux disease without esophagitis; Z66 Do not resuscitate; J96.02 Acute respiratory failure with hypercapnia